=== PATIENT | female | born 1980 | race African-American/Black ===

== ENCOUNTER 2017-06-02 10:03 | Inpatient (IN) ==
[2017-06-02] MEDS ORDERED: Ondansetron 4 MG/2 ML VIAL IVP ONE (10:27)
[2017-06-02] MEDS ORDERED: 0.9 % Sodium Chloride 1,000 ML IVC ONE (10:27)
--- NOTE | 2017-06-02 10:34 | Emergency Department Note ---
Disposition Clinical Impression: Pancreatitis, acute Qualifiers: Pancreatitis type: other Acute pancreatitis complication: unspecified Qualified Code(s): K85.80 - Other acute pancreatitis without necrosis or infection Disposition: Admitted As Inpatient Condition: Good Abdominal Pain HPI - General Chief Complaint: ED Abdominal Pain Stated Complaint: abd pain Time Seen by Provider: 06/02/17 10:14 Source: patient Nursing Notes Reviewed: Yes Vital Signs Reviewed: Yes - History of Present Illness HPI Narrative: Presents with epigastric abdominal pain for the last 2 days which is constant and severe with radiation to the back and she is not able to describe the character. She was here last night and diagnosed with pancreatitis with elevated lipase level and I did review this result. She left after it was decided that she should be admitted I one concern is because she is at a home for heroin addicts and she was concerned she would be kicked out if she received narcotic medication here. She states that 2 days ago she checked her temperature with a forehead thermometer which was 102.4 has not had a fever since that time although she has not specifically checked her temperature since that time. She denies any dysuria or urinary frequency, blood in the urine or stool, vaginal bleeding or discharge. She did vomit one time today. No diarrhea. Social history: Smokes one or 2 cigarettes a day, no alcohol, has not used heroin in the last 7 months. Pain Scale: 10 - Related Data Home Medications Medication Instructions Recorded Confirmed Ibuprofen [Motrin] 800 mg PO Q6HR 12/02/16 06/02/17 Insulin ASPART [Novolog] 5 - 8 unit SQ 2-3XD 12/02/16 06/02/17 Insulin Glargine [Lantus] 40 unit SQ HS 12/02/16 06/02/17 Aspirin [Lo-Dose Aspirin EC] 81 mg PO DAILY 06/02/17 06/02/17 Citalopram Hydrobromide 40 mg PO DAILY 06/02/17 06/02/17 [Citalopram HBr] Liraglutide [Victoza 3-Tyson] 1.2 mg SQ DAILY 06/02/17 06/02/17 Lisinopril [Lisinopril] 2.5 mg PO DAILY 06/02/17 06/02/17 Metoprolol Tartrate [Lopressor] 50 mg PO DAILY 06/02/17 06/02/17 Multivitamin/Iron/Folic Acid 1 each PO DAILY 06/02/17 06/02/17 [Certavite-Antioxidant Tablet] cephALEXin [Keflex] 500 mg PO BID 06/02/17 06/02/17 traZODone [TraZODone] 50 mg PO HS 06/02/17 06/02/17 Previous Rx's Medication Instructions Recorded Ondansetron [Zofran ODT] 4 mg SL Q6HR PRN #5 tab.rapdis 02/03/17 Allergies Allergy/AdvReac Type Severity Reaction Status Date / Time acetaminophen [From Tylenol] AdvReac Nausea Verified 06/02/17 10:07 vancomycin AdvReac See Verified 06/02/17 13:57 Comments Review of Systems: Constitutional: No fever Vision: No blurred vision ENT: No rhinorrhea Respiratory: No cough Allergic: No allergies : No blood in urine GI: No blood in stool Hematologic: No bruising Dermatologic: No skin rash Musculoskeletal: No pain in the extremities Neuro: No numbness of the extremities Abdominal Pain PMH - Past Medical History Medical history: Reports: coronary artery disease, diabetes, hepatitis, hyperlipidemia, hypertension, 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 EYES: PERRL, no scleral icterus. NOSE: The nose is normal in appearance without rhinorrhea RESP: Normal chest excursion with respiration; breath sounds clear and equal bilaterally; no wheezes, rhonchi, or rales CARD: Regular rhythm, without murmurs, rub or gallop ABD: Non-distended; normal appearance, moderate pain on palpation epigastric and minimal generalized pain but the entire abdomen is soft,without rigidity, rebound or guarding SKIN: Normal for age and race; warm and dry; no apparent lesions - General Limitations: no limitations General appearance: alert, in no apparent distress Course Vital Signs Temperature 97.9 F 06/02/17 10:05 Pulse Rate 80 06/02/17 10:05 Respiratory Rate 16 06/02/17 10:05 Blood Pressure 142/93 06/02/17 10:05 O2 Sat by Pulse Oximetry 97 06/02/17 10:05 Temperature 98.6 F 06/02/17 19:35 Pulse Rate 77 06/02/17 19:35 Respiratory Rate 16 06/02/17 19:35 Blood Pressure 116/75 06/02/17 19:35 O2 Sat by Pulse Oximetry 96 06/02/17 19:35 Oxygen Delivery Oxygen Delivery Room Air Abdominal Pain - MDM Narrative Medical decision making narrative: Labs will be repeated, IV fluids, IV Zofran. Patient will be admitted with the diagnosis of acute pancreatitis. She did have a cholecystectomy in the past. [id number] I have gone back and reassessed the patient. She distal does have significant pain although it is improved. Lipase is still elevated over 3 times upper normal and the patient will be admitted for further evaluation of pancreatitis. Her calcium level was not elevated. She has had a cholecystectomy. She does not drink alcohol. I did add on a triglyceride level and this can be further assessed while she is here in the hospital as far as etiology of pancreatitis. [id number] - Medical Records Medical records reviewed: Yes I reviewed the patient's medical records. - Lab Data Lab results reviewed: Yes I reviewed the patient's lab results. Result diagrams: 06/02/17 10:44 06/02/17 10:44 Lab Results 06/02/17 06/02/17 06/02/17 Range/Units 10:44 10:44 13:05 WBC 11.1 (4.3-11.1) K/mcL RBC 4.85 (3.82-4.97) M/mcL Hgb 13.5 (11.5-15.4) g/dL Hct 41.0 (35.3-44.9) % MCV 84.5 (83.0-100.0) fL MCH 27.8 L (28.0-33.3) pg MCHC 32.9 (31.6-35.5) g/dL RDW 11.5 (11.5-14.5) % Plt Count 184 (140-400) K/mcL MPV 9.6 (9.4-12.4) fL Immature Gran % 0.6 (0-4) % Seg Neutrophils % 76.1 % Lymphocytes % 15.5 % Monocytes % 4.7 % Eosinophils % 2.6 % Basophils % 0.5 % Neutrophils # 8.4 (1.6-8.9) K/mcL Lymphocytes # 1.7 (0.6-4.6) K/mcL Monocytes # 0.5 (0.0-1.3) K/mcL Eosinophils # 0.3 (0.0-0.6) K/mcL Basophils # 0.1 (0.0-0.2) K/mcL Sodium 134 L (136-145) mEq/L Potassium 4.1 (3.5-4.5) mEq/L Chloride 104 (98-109) mEq/L Carbon Dioxide 25 (19-29) mEq/L BUN 10 (7-20) mg/dL Creatinine 0.81 (0.57-1.11) mg/dL Est GFR ( Amer) > 60 (> 60) Est GFR (Non-Af Amer) > 60 (> 60) BUN/Creatinine Ratio 12 (6-26) Glucose 330 H (70-99) mg/dL Calculated Osmolality 290 (280-300) Calcium 8.5 L (8.6-10.8) mg/dL Total Bilirubin 0.8 (0.2-1.2) mg/dL Direct Bilirubin 0.4 (0.0-0.5) mg/dL Indirect Bilirubin 0.4 (0.0-1.2) mg/dL AST 24 (5-34) Units/L ALT 31 (0-55) Units/L Alkaline Phosphatase 78 (38-126) Units/L Serum Total Protein 6.9 (6.0-8.3) g/dL Albumin 3.0 L (3.5-5.0) g/dL Globulin 3.9 H (2.4-3.5) g/dL Albumin/Globulin Ratio 0.8 L (1.1-2.2) Triglycerides 134 (< 150) mg/dL Lipase 213 H (8-78) Units/L Urine Color Yellow (Yellow) Urine Clarity Cloudy A (Clear) Urine pH 6.0 (5.0-8.0) pH Units Ur Specific [place] 1.018 (1.010-1.025) Urine Protein Negative (Neg-Trace) mg/dL Urine Glucose (UA) >=1000 H (Normal) mg/dL Urine Ketones Negative (Negative) mg/dL Urine Blood Negative (Negative) Urine Nitrite Negative (Negative) Urine Bilirubin Negative (Negative) Urine Urobilinogen Normal (Normal) mg/dL Ur Leukocyte Esterase Negative (Negative) Urine Microscopic RBC 0-3 (0-3) per hpf Urine Microscopic WBC 5-15 H (0-3) per hpf Ur Squamous Epith Cells Many H (None-Few) per lpf Urine Bacteria Moderate H (None-Few) per hpf Hyaline Casts None Seen (None-Few) per lpf Ur Culture Indicated? YES A (NO) Urine Test (Negative) 06/02/17 Range/Units 13:05 WBC (4.3-11.1) K/mcL RBC (3.82-4.97) M/mcL Hgb (11.5-15.4) g/dL Hct (35.3-44.9) % MCV (83.0-100.0) fL MCH (28.0-33.3) pg MCHC (31.6-35.5) g/dL RDW (11.5-14.5) % Plt Count (140-400) K/mcL MPV (9.4-12.4) fL Immature Gran % (0-4) % Seg Neutrophils % % Lymphocytes % % Monocytes % % Eosinophils % % Basophils % % Neutrophils # (1.6-8.9) K/mcL Lymphocytes # (0.6-4.6) K/mcL Monocytes # (0.0-1.3) K/mcL Eosinophils # (0.0-0.6) K/mcL Basophils # (0.0-0.2) K/mcL Sodium (136-145) mEq/L Potassium (3.5-4.5) mEq/L Chloride (98-109) mEq/L Carbon Dioxide (19-29) mEq/L BUN (7-20) mg/dL Creatinine (0.57-1.11) mg/dL Est GFR ( Amer) (> 60) Est GFR (Non-Af Amer) (> 60) BUN/Creatinine Ratio (6-26) Glucose (70-99) mg/dL Calculated Osmolality (280-300) Calcium (8.6-10.8) mg/dL Total Bilirubin (0.2-1.2) mg/dL Direct Bilirubin (0.0-0.5) mg/dL Indirect Bilirubin (0.0-1.2) mg/dL AST (5-34) Units/L ALT (0-55) Units/L Alkaline Phosphatase (38-126) Units/L Serum Total Protein (6.0-8.3) g/dL Albumin (3.5-5.0) g/dL Globulin (2.4-3.5) g/dL Albumin/Globulin Ratio (1.1-2.2) Triglycerides (< 150) mg/dL Lipase (8-78) Units/L Urine Color (Yellow) Urine Clarity (Clear) Urine pH (5.0-8.0) pH Units Ur Specific [place] (1.010-1.025) Urine Protein (Neg-Trace) mg/dL Urine Glucose (UA) (Normal) mg/dL Urine Ketones (Negative) mg/dL Urine Blood (Negative) Urine Nitrite (Negative) Urine Bilirubin (Negative) Urine Urobilinogen (Normal) mg/dL Ur Leukocyte Esterase (Negative) Urine Microscopic RBC (0-3) per hpf Urine Microscopic WBC (0-3) per hpf Ur Squamous Epith Cells (None-Few) per lpf Urine Bacteria (None-Few) per hpf Hyaline Casts (None-Few) per lpf Ur Culture Indicated? (NO) Urine Test Negative (Negative)
[2017-06-02 10:57] LABS: Basophils # 0.1 K/mcL (0.0-0.2); Basophils % 0.5 %; Eosinophils # 0.3 K/mcL (0.0-0.6); Eosinophils % 2.6 %; Hemoglobin 13.5 g/dL (11.5-15.4); Immature Granulocytes % 0.6 % (0-4); Lymphocytes # 1.7 K/mcL (0.6-4.6); Lymphocytes % 15.5 %; Mean Corpuscular HGB Conc 32.9 g/dL (31.6-35.5); Mean Corpuscular Hemoglobin 27.8 pg (28.0-33.3); Mean Corpuscular Volume 84.5 fL (83.0-100.0); Mean Platelet Volume 9.6 fL (9.4-12.4); Monocytes # 0.5 K/mcL (0.0-1.3); Monocytes % 4.7 %; Neutrophils # 8.4 K/mcL (1.6-8.9); Platelet Count 184 K/mcL (140-400); Red Blood Count 4.85 M/mcL (3.82-4.97); Red Cell Distribution Width 11.5 % (11.5-14.5); Segmented Neutrophils % 76.1 %
[2017-06-02] MEDS ORDERED: *HR* HYDROmorphone (PF) 1 MG/ML SYRINGE ONE (11:02)
[2017-06-02] MEDS: *HR* HYDROmorphone (PF) 1 MG/ML SYRINGE IVP ONE ×2 (11:04→11:08)
[2017-06-02 11:10] LABS: Alanine Aminotransferase 31 Units/L (0-55); Albumin/Globulin Ratio 0.8 (1.1-2.2); Alkaline Phosphatase 78 Units/L (38-126); Aspartate Amino Transferase 24 Units/L (5-34); BUN/Creatinine Ratio 12 (6-26); Bilirubin,Direct 0.4 mg/dL (0.0-0.5); Bilirubin,Indirect 0.4 mg/dL (0.0-1.2); Bilirubin,Total 0.8 mg/dL (0.2-1.2); Blood Urea Nitrogen 10 mg/dL (7-20); Calcium 8.5 mg/dL (8.6-10.8); Carbon Dioxide 25 mEq/L (19-29); Chloride 104 mEq/L (98-109); Globulin 3.9 g/dL (2.4-3.5); Glucose 330 mg/dL (70-99); Lipase 213 Units/L (8-78); Osmolality,Calculated 290 (280-300); Potassium 4.1 mEq/L (3.5-4.5); Sodium 134 mEq/L (136-145); Total Protein 6.9 g/dL (6.0-8.3); eGFR For African Americans > 60 (> 60); eGFR For Non-African Americans > 60 (> 60)
[2017-06-02] MEDS ORDERED: Ketorolac 15 MG/ML VIAL IVP ONE (12:39)
[2017-06-02 13:16] LABS: Bilirubin,Urine Negative (Negative); Blood,Urine Negative (Negative); Clarity,Urine Cloudy (Clear); Color,Urine Yellow (Yellow); Glucose,Urine (UA) >=1000 mg/dL (Normal); Ketones,Urine Negative (Negative); Leukocyte Esterase,Urine Negative (Negative); Nitrite,Urine Negative (Negative); Protein,Urine Negative (Neg-Trace); Specific Gravity,Urine 1.018 (1.010-1.025); Urobilinogen,Urine Normal (Normal)
[2017-06-02 13:18] LABS: Bacteria,Urine Moderate per hpf (None-Few); Hyaline Casts,Urine None Seen per lpf (None-Few); RBC,Urine 0-3 per hpf (0-3); Squamous Epithelial Cell,Urine Many per lpf (None-Few)
[2017-06-02] MEDS ORDERED: Naloxone 0.4 MG/ML INJ IVP PRN (14:58)
[2017-06-02] MEDS ORDERED: 0.9 % Sodium Chloride 1,000 ML IVC SCH (15:15)
[2017-06-02] MEDS ORDERED: D5% in Water 1,000 ML IVC PRN (15:20)
[2017-06-02] MEDS ORDERED: Dextrose Gel 15 GM PO PRN ×2 (15:20)
[2017-06-02] MEDS ORDERED: *HR* Dextrose 50 % in Water (Syg) 50 ML SYRINGE IVP PRN (15:20)
[2017-06-02] MEDS ORDERED: INSULIN ASPART 5 UNIT SQ SCH (15:30)
[2017-06-02 15:39] LABS: Triglycerides 134 mg/dL (< 150)
--- NOTE | 2017-06-02 15:42 | Internal Med History&Physical ---
<Hemanth Wang - Last Filed: 06/02/17 20:38> Date of Encounter: 06/02/17 Time of Encounter: 14:30 Assessment and Plan (1) Pancreatitis Current visit: Yes Status: Acute Patient presents with acute pancreatitis based on current symptoms and previous history. Patient reports severe abdominal pain that radiates to her back. Lipase is 213 on admission to ED. Patient received IV fluid bolus in the ED and IV fluid to be continued at 100 mL/HR. NPO status for now. IVP Promethazine 12.5 mg ordered Q6 PRN for nausea/vomiting. IVP Protonix 40 mg ordered daily for patient's GERD. Will monitor patient's I&O and pain level. Follow up labs ordered. STAT test ordered. Once non- status is confirmed, will order CT of the abdomen/pelvis w/o contrast. Qualifiers: Chronicity: acute Pancreatitis type: unspecified pancreatitis type Acute pancreatitis complication: unspecified Qualified Code(s): K85.90 - Acute pancreatitis without necrosis or infection, unspecified (2) Suspected UTI Current visit: Yes Status: Suspected Patient presents with suspected UTI based on U/A in the ED. Urine culture ordered. Patient denies any current burning or urgency with urination. IV ciprofloxacin 400 mg BID ordered for infection coverage. Will monitor I&O and follow-up labs. (3) Abdominal pain Current visit: Yes Status: Acute Patient presents with acute abdominal pain for the past three days which she rates as severe. Patient was given Toradol and Dilaudid in the ED which she states did not help much with her pain. Will continue Toradol for moderate pain and add morphine for severe pain. Will monitor patient closely for breakthrough pain. NPO status. Patient placed as falls precautions/up with assist/bed rest with bathroom privileges with assist only due to current severe pain. Qualifiers: Abdominal location: generalized Qualified Code(s): R10.84 - Generalized abdominal pain (4) Diabetes Current visit: Yes Status: Chronic Patient presents with history of chronic diabetes with insulin dependency. A1c ordered. Blood glucose checks ACHS. Will continue patient's HS insulin and add low-dose correction insulin sliding scale with hypoglycemic protocol. Patient is currently NPO so blood glucose to be monitored closely and corrected as needed. Qualifiers: Diabetes mellitus type: type 2 Diabetes mellitus complication status: without complication Diabetes mellitus long term care phlebotomist insulin use: with group home use Qualified Code(s): E11.9 - Type 2 diabetes mellitus without complications ; Z79.4 - long term care phlebotomist (current) use of insulin (5) CAD (coronary artery disease) Current visit: Yes Status: Chronic Patient presents with history of chronic CAD and reports having 4-5 previous MIs with placement of one stent in the LAD due to 99% blockage. Patient denies chest pain or SOB at this time or recently. Will continue patient's aspirin therapy daily as well as lopressor and lisinopril. Echocardiogram and EKG ordered. Will consider adding continuous telemetry if warranted on echo and EKG results. Qualifiers: Coronary Disease-Associated Artery/Lesion type: unspecified vessel or lesion type [place] vs. transplanted heart: [place] heart Associated angina: without angina Qualified Code(s): I25.10 - Atherosclerotic heart disease of [place] coronary artery without angina pectoris (6) HLD (hyperlipidemia) Current visit: Yes Status: Chronic Patient reports history of chronic hyperlipidemia but is not currently taking a statin medication. Lipid panel ordered. Will consider adding Lipitor to patient' s medications based on lipid panel results. Qualifiers: Hyperlipidemia type: pure hypercholesterolemia Qualified Code(s): E78.00 - Pure hypercholesterolemia, unspecified; E78.0 - Pure hypercholesterolemia (7) HTN (hypertension) Current visit: Yes Status: Chronic Patient presents with history of chronic hypertension. Patient's BP in ED was 171/116 most likely due to current severe abdominal pain. Will monitor patient and vital signs and continue patient' s lopressor and lisinopril. Qualifiers: Hypertension type: essential hypertension Qualified Code(s): I10 - Essential (primary) hypertension (8) GERD (gastroesophageal reflux disease) Current visit: Yes Status: Chronic Patient presents with history of chronic GERD. IVP Protonix 40 mg daily ordered. IVP Promethazine 12.5 mg Q6 PRN ordered for N/V. Qualifiers: Esophagitis presence: esophagitis presence not specified Qualified Code(s) : K21.9 - Gastro-esophageal reflux disease without esophagitis (9) DVT prophylaxis Current visit: Yes Status: Acute Patient to be placed on DVT prophylaxis due to current admission protocol, bed rest status, and history of CAD, Heparin 5,000 units SQ Q12 ordered. Internal Medicine - H&P: HPI Chief complaint: Abdominal Pain/N/V Admitted From: Emergency Dept Plans for Post Hospital Care: Home History of present illness: Ms. Fortune is a 36 year old female who presents from the Ed with chief complaint of severe abdominal pain that began three days ago and that has been accompanied by nausea and vomiting. Patient states that the pain radiates to her back and is similar to the pain she had prior to having a cholecystectomy in 2014 but the pain is more severe. She was seen in the ED yesterday with the same symptoms but did not stay due to being in rehab and not wanting to take pain medication without prior approval from her facility/counselor. She also reports fever and chills. She denies chest pain, unusual bleeding in stool or urine, general weakness, changes in vision, shortness of breath, pre-syncope, or syncope. Patient's medical history includes coronary artery disease, diabetes with insulin dependency, hepatitis C, hyperlipidemia, hypertension, and history of 4-5 previous MIs. Patient reports she had a stent placed in her descending artery due to a 99% blockage. Patient also reports she is post- cholecystectomy status. She reports using heroin and crack cocaine in the past and quit seven months ago prior to entering rehabilitation services. She is a current smoker smoking 1-2 cigarettes daily. Ms. Fortune currently presents with hyponatremia and sodium level of 134, hyperglycemia with glucose of 330, and a lipase level of 213 on admission to the ED. Initial U/A is indicative for urine culture for possible UTI. Stat test ordered prior to ordering CT of the abdomen/pelvis. Patient is at moderate risk for further morbidity and complications based on current symptoms and will be placed as observation status with orders for IV fluids @ 100mL/HR, NPO status, stair-step pain medications for pain management, and IV ciprofloxacin 400 mg BID for infection coverage. Falls/safety precautions ordered due to patient's severe pain. Patient to be monitored closely for signs of increasing pain and/or infection. Time spent with patient >40 minutes. Past Med Surg Social Fam HX - Past Medical History Source: patient Medical history: coronary artery disease (Hx of 4-5 MIs and stent placed in descending artery due to 99% blockage), diabetes, hepatitis (C), hyperlipidemia , hypertension, other Psychiatric history: PTSD - Past Surgical History Surgical History: cholecystectomy - Social History Smoking Status: Current every day smoker Packs per day: 1-2 cigarettes per day Smokeless Tobacco Status: No Alcohol use: none Drug use: none Current living situation: Home Activity Level: Independent ambulation Recent Out of Country Travel Within the Last 8 Weeks: No Exposure or Possible Exposure to Illness During Travel: No - Family History Father Living Status: Still Living Hx Family Medical Disorders: No Mother Living Status: Still Living Hx Family Endocrine Disorder: Yes (DM) Brother Living Status: Still Living Hx Family Medical Disorders: No Internal Medicine - H&P: Meds Ibuprofen [Motrin] 800 mg PO Q6HR 12/02/16 [History] Insulin ASPART [Novolog] 5 - 8 unit SQ 2-3XD 12/02/16 [History] Insulin Glargine [Lantus] 40 unit SQ HS 12/02/16 [History] Ondansetron [Zofran ODT] 4 mg SL Q6HR PRN #5 tab.rapdis 02/03/17 [Rx] Aspirin [Lo-Dose Aspirin EC] 81 mg PO DAILY 06/02/17 [History] Citalopram Hydrobromide [Citalopram HBr] 40 mg PO DAILY 06/02/17 [History] Liraglutide [Victoza 3-Tyson] 1.2 mg SQ DAILY 06/02/17 [History] Lisinopril [Lisinopril] 2.5 mg PO DAILY 06/02/17 [History] Metoprolol Tartrate [Lopressor] 50 mg PO DAILY 06/02/17 [History] Multivitamin/Iron/Folic Acid [Certavite-Antioxidant Tablet] 1 each PO DAILY [History] cephALEXin [Keflex] 500 mg PO BID 06/02/17 [History] traZODone [TraZODone] 50 mg PO HS 06/02/17 [History] 3 Allergy/AdvReac Type Severity Reaction Status Date / Time acetaminophen [From Tylenol] AdvReac Nausea Verified 06/02/17 10:07 vancomycin AdvReac See Verified 06/02/17 13:57 Comments All Systems PM: A 10-system review of systems was performed and is negative for pertinent findings except as documented above in the HPI. - Constitutional Constitutional: as per HPI, chills, fever(s), no night sweats - EENT Eyes: no change in vision, no discharge, no pain, no photophobia Ears: no ear discharge, no ear pain, no tinnitus Nose, mouth and throat: no dysphagia, no nasal discharge, no neck pain, no sore throat - Breasts Breasts: as per HPI - Cardiovascular Cardiovascular ROS IM: no chest pain, no diaphoresis, no dyspnea, no lightheadedness, no palpitations, no syncope - Respiratory Respiratory: no cough, no dyspnea, no wheezing, no excessive phlegm production - Gastrointestinal Gastrointestinal: as per HPI, abdominal pain, nausea, vomiting - Genitourinary Genitourinary: as per HPI Menstruation: as per HPI - Musculoskeletal Musculoskeletal ROS IM: no numbness, no tingling - Integumentary Integumentary IM: no rash, no unusual bruising - Neurological Neurological ROS: no confusion, no convulsions, no focal weakness, no numbness, no tingling, no tremor(s) - Psychiatric Psychiatric: as per HPI - Endocrine Endocrine IM: as per HPI - Hematologic/Lymphatic Hematologic/Lymphatic: no easy bruising - Allergic/Immunologic Allergic/Immunologic: as per HPI - Constitutional Vitals: Temp Pulse Resp BP Pulse Ox 97.9 F 69 16 135/83 96 06/02/17 10:05 06/02/17 12:37 06/02/17 14:57 06/02/17 14:57 06/02/17 12:37 General appearance: Present: cooperative, morbidly obese, pleasant, severe distress, answers questions appropriately - Head Head exam: Present: atraumatic, normocephalic - Eye Eye exam: Present: PERRL, conjuntiva pink, sclera anicteric Pupils: Present: PERRL - ENT ENT exam: Present: normal exam, normal external ear exam - Neck Neck exam general surgery: Present: normal inspection, supple, trachea midline. Absent: lymphadenopathy - Respiratory Respiratory exam: Present: CTAB. Absent: accessory muscle use, rales, rhonchi, wheezes - Cardiovascular Cardiovascular exam: Present: RRR, +S1, +S2. Absent: diastolic murmur, gallop, rubs, systolic murmur - GI/Abdominal GI/Abdominal exam: Present: diminished bowel sounds, guarding, soft, tenderness , no peritoneal signs. Absent: distended - Rectal Rectal exam: Present: deferred - Additional comments: exam deferred. - Extremities Exam Extremities exam: Present: warm, radial pulses palpable and symmetrical. Absent : calf tenderness, cyanotic, pedal edema - Back Exam Back exam: Present: normal inspection - Neurological Exam Neurological exam: Present: CN II-XII intact, oriented X3, no focal deficits. Absent: pronater drift, facial droop, speech deficit - Psychiatric Psychiatric exam: Present: anxious (Due to severe pain) - Skin Skin exam: Present: dry, intact Internal Med - H&P Results - Labs CBC & Chem 7: 06/02/17 10:44 06/02/17 10:44 <Leslie Ortega - Last Filed: 06/03/17 07:10> Date of Encounter: 06/03/17 Internal Medicine - H&P: HPI History of present illness: Ms. Fortune is a 36 year old female All Systems PM: A 10-system review of systems was performed and is negative for pertinent findings except as documented above in the HPI. - Constitutional Vitals: Temp Pulse Resp BP Pulse Ox 98.6 F 75 16 113/77 90 06/03/17 06:31 06/03/17 06:31 06/03/17 06:31 06/03/17 06:31 06/03/17 06:31 Internal Med - H&P Results - Labs CBC & Chem 7: 06/03/17 05:38 06/03/17 05:38 Labs: Short CBC 06/03/17 Range/Units 05:38 WBC 9.8 (4.3-11.1) K/mcL Hgb 13.1 (11.5-15.4) g/dL Hct 39.8 (35.3-44.9) % Plt Count 182 (140-400) K/mcL Neutrophils # 7.2 (1.6-8.9) K/mcL BMP 06/03/17 05:38 Sodium 138 Potassium 3.8 Chloride 109 Carbon Dioxide 23 BUN 10 Creatinine 0.71 Glucose 157 H Calcium 8.1 L - Impressions ITS Impressions Abdomen/Pelvis CT 06/02/17 16:27 IMPRESSION: 1. Findings consistent with pancreatitis involving the head and uncinate process of the pancreas. Secondary duodenitis with inflammatory changes particularly along the 2nd portion of the duodenum. 2. Otherwise no acute findings within the abdomen or pelvis. Previous cholecystectomy. No evidence of obstructive uropathy or appendicitis. D/ / 06/02/2017 18:29:51 Costa Roa MD / artie Interpreting Provider: Costa Roa MD
[2017-06-02] MEDS ORDERED: Insulin LISPRO 300 UNITS/3 ML VIAL SQ SCH ×2 (16:30→21:00)
[2017-06-02] MEDS: Pantoprazole 40 MG VIAL IVP SCH (16:41)
[2017-06-02] MEDS: *HR* Heparin 5,000 UNIT/ML VIAL SQ SCH (16:41)
[2017-06-02] MEDS: *HR* Morphine 2 MG/ML SYRINGE IVP PRN ×2 (16:41→20:48)
[2017-06-02] MEDS: Ketorolac 30 MG/ML VIAL IVP PRN ×2 (17:36→23:43)
--- NOTE | 2017-06-02 18:34 | Event Note ---
Date of Encounter: 06/02/17 Time of Encounter: 18:00 I saw and examined pt. I have discussed with [employer]WD[employer] MACHINE OPERATOR Mr. Wang regarding the management plan. Pt admitted with Abd pain. She has elevated lipase. CT abd shows acute pancreatitis. Pt has hx of pancreatitis in 2014, at that time she had cholecystectomy. Pt denies alcoholism. She has normal bilirubin and liver enzyme level. Will treat pt with IVF, NPO, and pain med for her acute pancreatitis. F/U lipase in AM.
[2017-06-02] MEDS: Insulin LISPRO 300 UNITS/3 ML VIAL SQ SCH ×2 (18:39→23:54)
[2017-06-02] MEDS: 0.9 % Sodium Chloride 1,000 ML IVC SCH (18:40)
[2017-06-02] MEDS: Insulin DETEMIR 100 UNIT/ML X5UNITS SQ SCH (19:53)
[2017-06-03] MEDS: 0.9 % Sodium Chloride 1,000 ML IVC SCH ×3 (00:55→18:22)
[2017-06-03] MEDS ORDERED: *HR* HYDROmorphone (PF) 1 MG/ML SYRINGE IVP ONE (01:06)
[2017-06-03] MEDS: *HR* Morphine 2 MG/ML SYRINGE IVP PRN ×4 (03:44→18:24)
[2017-06-03] MEDS: Insulin LISPRO 300 UNITS/3 ML VIAL SQ SCH ×3 (05:46→18:36)
[2017-06-03] MEDS: *HR* Heparin 5,000 UNIT/ML VIAL SQ SCH ×2 (05:47→18:42)
[2017-06-03] MEDS: Ketorolac 30 MG/ML VIAL IVP PRN (05:48)
[2017-06-03 06:17] LABS: INR 1.2; Prothrombin Time 12.6 Seconds (9.4-12.1)
[2017-06-03 06:20] LABS: Activated Partial Thrombo Time 33.3 Seconds (26.0-36.0)
[2017-06-03 06:21] LABS: Basophils % 0.4 %; Eosinophils # 0.3 K/mcL (0.0-0.6); Eosinophils % 2.8 %; Hematocrit 39.8 % (35.3-44.9); Hemoglobin 13.1 g/dL (11.5-15.4); Immature Granulocytes % 0.7 % (0-4); Lymphocytes # 1.7 K/mcL (0.6-4.6); Lymphocytes % 17.3 %; Mean Corpuscular HGB Conc 32.9 g/dL (31.6-35.5); Mean Corpuscular Hemoglobin 28.4 pg (28.0-33.3); Mean Corpuscular Volume 86.3 fL (83.0-100.0); Mean Platelet Volume 9.8 fL (9.4-12.4); Monocytes # 0.5 K/mcL (0.0-1.3); Monocytes % 5.2 %; Neutrophils # 7.2 K/mcL (1.6-8.9); Platelet Count 182 K/mcL (140-400); Red Blood Count 4.61 M/mcL (3.82-4.97); Red Cell Distribution Width 11.8 % (11.5-14.5); Segmented Neutrophils % 73.6 %
[2017-06-03 06:34] LABS: BUN/Creatinine Ratio 14 (6-26); Blood Urea Nitrogen 10 mg/dL (7-20); Calcium 8.1 mg/dL (8.6-10.8); Carbon Dioxide 23 mEq/L (19-29); Chloride 109 mEq/L (98-109); Chol/HDL Ratio 5.4 (0-4.9); Cholesterol 188 mg/dL (< 200); Glucose 157 mg/dL (70-99); HDL Cholesterol 35 mg/dL (40-59); LDL Cholesterol,Calculated 128 mg/dL (0-99); Magnesium 1.4 mg/dL (1.6-2.6); Osmolality,Calculated 288 (280-300); Potassium 3.8 mEq/L (3.5-4.5); Sodium 138 mEq/L (136-145); Triglycerides 123 mg/dL (< 150); eGFR For African Americans > 60 (> 60); eGFR For Non-African Americans > 60 (> 60)
[2017-06-03] MEDS: Pantoprazole 40 MG VIAL IVP SCH (08:01)
[2017-06-03] MEDS: Aspirin Enteric Coated 81 MG Tablet PO SCH (08:02)
[2017-06-03] MEDS ORDERED: Magnesium Sulfate 2 GM in D5% in Water 100 ML IVPB ONE (08:17)
--- NOTE | 2017-06-03 11:32 | Internal Med Progress Note ---
Date of Encounter: 06/03/17 Time of Encounter: 11:27 - Assessment and plan (1) Pancreatitis, acute Current Visit: Yes Status: Acute Assessment and plan: continue supportive care IV fluids pain control anti-emetics clear liquid diet Qualifiers: Pancreatitis type: unspecified pancreatitis type Acute pancreatitis complication: unspecified Qualified Code(s): K85.90 - Acute pancreatitis without necrosis or infection, unspecified (2) UTI (urinary tract infection) Current Visit: Yes Status: Acute Assessment and plan: continue IV abx f/u urine cultures Qualifiers: Urinary tract infection type: site unspecified Hematuria presence: without hematuria Qualified Code(s): N39.0 - Urinary tract infection, site not specified (3) DVT prophylaxis Current Visit: Yes Status: Acute Assessment and plan: Heparin SQ (4) Diabetes Current Visit: Yes Status: Chronic Assessment and plan: continue sliding scale insulin algorithm home dose of levemir monitor FS and BG Qualifiers: Diabetes mellitus type: type 2 Diabetes mellitus complication status: without complication Diabetes mellitus penitentiary insulin use: with penitentiary use Qualified Code(s): E11.9 - Type 2 diabetes mellitus without complications ; 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 transplanted heart: [place] heart Associated angina: without angina Qualified Code(s): I25.10 - Atherosclerotic heart disease of [place] coronary artery without angina pectoris (6) HTN (hypertension) Current Visit: Yes Status: Chronic Assessment and plan: BP within acceptable range will continue to monitor Qualifiers: Hypertension type: essential hypertension Qualified Code(s): I10 - Essential (primary) hypertension - Subjective Interval history: Pt seen and examined at bedside. Reports of feeling better but still have diffuse abdominal pain. Denies any nausea or vomiting at this time. States she would like to have some water but does not feel hungry at this time. No fever or chills reported. - Constitutional Vitals: Temp Pulse Resp BP Pulse Ox 98.1 F 66 16 119/81 94 06/03/17 10:53 06/03/17 10:53 06/03/17 10:53 06/03/17 10:53 06/03/17 10:53 General appearance: Present: cooperative, morbidly obese, pleasant, no acute distress, severe distress, answers questions appropriately - Head Head exam: Present: atraumatic, normocephalic - Eye Eye exam: Present: conjuntiva pink, sclera anicteric - Respiratory Respiratory exam: Present: CTAB. Absent: accessory muscle use, rales, rhonchi, wheezes - Cardiovascular Cardiovascular exam: Present: RRR, +S1, +S2. Absent: diastolic murmur, gallop, rubs, systolic murmur - GI/Abdominal GI/Abdominal exam: Present: normal bowel sounds, soft, no peritoneal signs. Absent: distended, tenderness - Extremities Exam Extremities exam: Present: warm, radial pulses palpable and symmetrical. Absent : calf tenderness - Neurological Exam Neurological exam: Present: alert, oriented X3 - Psychiatric Psychiatric exam: Present: normal affect, normal mood Internal Medicine: Result - Labs CBC & Chem 7: 06/03/17 05:38 06/03/17 05:38 Labs: Short CBC 06/03/17 Range/Units 05:38 WBC 9.8 (4.3-11.1) K/mcL Hgb 13.1 (11.5-15.4) g/dL Hct 39.8 (35.3-44.9) % Plt Count 182 (140-400) K/mcL Neutrophils # 7.2 (1.6-8.9) K/mcL BMP 06/03/17 05:38 Sodium 138 Potassium 3.8 Chloride 109 Carbon Dioxide 23 BUN 10 Creatinine 0.71 Glucose 157 H Calcium 8.1 L - ABG Interpretation ABG results: PT/INR, D-dimer PT 12.6 Seconds (9.4-12.1) H 06/03/17 05:38 - Impressions Impressions Abdomen/Pelvis CT 06/02/17 16:27 IMPRESSION: 1. Findings consistent with pancreatitis involving the head and uncinate process of the pancreas. Secondary duodenitis with inflammatory changes particularly along the 2nd portion of the duodenum. 2. Otherwise no acute findings within the abdomen or pelvis. Previous cholecystectomy. No evidence of obstructive uropathy or appendicitis. D/ / 06/02/2017 18:29:51 Costa Roa MD / artie Interpreting Provider: Costa Roa MD Consult Discharge Plan - Plan Referrals: Lelo Quick CNP [Primary Care Provider] - 06/14/17 1:45 pm ( )
[2017-06-03] MEDS: *HR* Promethazine 25 MG/ML VIAL IVP PRN ×2 (12:33→18:30)
--- NOTE | 2017-06-03 17:13 | Electrocardiograph Report ---
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
[2017-06-03] MEDS: traZODone 50 MG TABLET PO SCH (20:34)
[2017-06-03] MEDS: Insulin DETEMIR 100 UNIT/ML X5UNITS SQ SCH (20:36)
[2017-06-04] MEDS: *HR* Morphine 2 MG/ML SYRINGE IVP PRN ×5 (00:25→20:41)
[2017-06-04] MEDS: Insulin LISPRO 300 UNITS/3 ML VIAL SQ SCH ×4 (00:27→18:24)
[2017-06-04] MEDS: *HR* OxyCODONE Immed Rel 5 MG TABLET PO PRN ×3 (01:25→18:28)
[2017-06-04] MEDS: 0.9 % Sodium Chloride 1,000 ML IVC SCH ×4 (02:05→20:36)
[2017-06-04] MEDS: *HR* Heparin 5,000 UNIT/ML VIAL SQ SCH ×2 (05:04→18:24)
[2017-06-04 06:21] LABS: Basophils % 0.2 %; Eosinophils # 0.2 K/mcL (0.0-0.6); Eosinophils % 1.4 %; Hematocrit 37.4 % (35.3-44.9); Hemoglobin 12.6 g/dL (11.5-15.4); Immature Granulocytes % 0.5 % (0-4); Immature Platelets 2.8 % (1.1-6.1); Lymphocytes # 1.6 K/mcL (0.6-4.6); Lymphocytes % 10.7 %; Mean Corpuscular HGB Conc 33.7 g/dL (31.6-35.5); Mean Corpuscular Hemoglobin 28.7 pg (28.0-33.3); Mean Corpuscular Volume 85.2 fL (83.0-100.0); Mean Platelet Volume 9.6 fL (9.4-12.4); Monocytes # 0.7 K/mcL (0.0-1.3); Monocytes % 4.8 %; Neutrophils # 12.4 K/mcL (1.6-8.9); Platelet Count 190 K/mcL (140-400); Red Blood Count 4.39 M/mcL (3.82-4.97); Red Cell Distribution Width 11.6 % (11.5-14.5); Segmented Neutrophils % 82.4 %
[2017-06-04 06:37] LABS: BUN/Creatinine Ratio 9 (6-26); Blood Urea Nitrogen 6 mg/dL (7-20); Calcium 7.8 mg/dL (8.6-10.8); Carbon Dioxide 24 mEq/L (19-29); Chloride 111 mEq/L (98-109); Glucose 135 mg/dL (70-99); Lipase 47 Units/L (8-78); Magnesium 1.7 mg/dL (1.6-2.6); Osmolality,Calculated 286 (280-300); Phosphorous 1.8 mg/dL (2.3-4.7); Potassium 3.8 mEq/L (3.5-4.5); Sodium 138 mEq/L (136-145); eGFR For African Americans > 60 (> 60); eGFR For Non-African Americans > 60 (> 60)
[2017-06-04] MEDS: *HR* Promethazine 25 MG/ML VIAL IVP PRN (07:44)
[2017-06-04] MEDS: Pantoprazole 40 MG VIAL IVP SCH (07:44)
[2017-06-04] MEDS: Aspirin Enteric Coated 81 MG Tablet PO SCH (07:45)
[2017-06-04] MEDS: Piperacillin/Tazobactam 3.375 GM in D5% in Water (Mini-Bag+) 100 ML IVPB SCH ×2 (09:36→15:35)
--- NOTE | 2017-06-04 11:55 | Internal Med Progress Note ---
Date of Encounter: 06/04/17 Time of Encounter: 11:42 - Assessment and plan (1) Pancreatitis, acute Current Visit: Yes Status: Acute Assessment and plan: continue supportive care IV fluids pain control anti-emetics clear liquid diet Qualifiers: Pancreatitis type: unspecified pancreatitis type Acute pancreatitis complication: unspecified Qualified Code(s): K85.90 - Acute pancreatitis without necrosis or infection, unspecified (2) UTI (urinary tract infection) Current Visit: Yes Status: Acute Assessment and plan: continue IV abx f/u urine cultures Qualifiers: Urinary tract infection type: site unspecified Hematuria presence: without hematuria Qualified Code(s): N39.0 - Urinary tract infection, site not specified (3) DVT prophylaxis Current Visit: Yes Status: Acute Assessment and plan: Heparin SQ (4) Diabetes Current Visit: Yes Status: Chronic Assessment and plan: continue sliding scale insulin algorithm home dose of levemir monitor FS and BG Qualifiers: Diabetes mellitus type: type 2 Diabetes mellitus complication status: without complication Diabetes mellitus half-way insulin use: with half-way use Qualified Code(s): E11.9 - Type 2 diabetes mellitus without complications ; 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 transplanted heart: [place] heart Associated angina: without angina Qualified Code(s): I25.10 - Atherosclerotic heart disease of [place] coronary artery without angina pectoris (6) HTN (hypertension) Current Visit: Yes Status: Chronic Assessment and plan: BP within acceptable range will continue to monitor Qualifiers: Hypertension type: essential hypertension Qualified Code(s): I10 - Essential (primary) hypertension (7) Electrolyte abnormality Current Visit: Yes Status: Acute Assessment and plan: Hypophosphatemia Phos supplemented continue to monitor electrolytes and replace as needed - Subjective Interval history: Pt seen and examined at bedside. As per nursing reports, patient has been demonstrating drug seeking behavior, she is asleep and wakes up stating she is in pain. During my evaluation, I had an extensive conversation with the patient about narcotic abuse and dependence, she demonstrates understanding and denies such behavior. She states her pain is better controlled but she still has the pain. States she has not moved her bowels for the last few days and is requesting stool softeners. Noted to have worsening leukocytosis but no fever or chills reported. - Constitutional Vitals: Temp Pulse Resp BP Pulse Ox 97.9 F 73 17 113/79 94 06/04/17 10:50 06/04/17 10:50 06/04/17 10:50 06/04/17 10:50 06/04/17 10:50 General appearance: Present: cooperative, morbidly obese, pleasant, no acute distress, answers questions appropriately - Head Head exam: Present: atraumatic, normocephalic - Eye Eye exam: Present: conjuntiva pink, sclera anicteric - Respiratory Respiratory exam: Present: CTAB. Absent: accessory muscle use, rales, rhonchi, wheezes - Cardiovascular Cardiovascular exam: Present: RRR, +S1, +S2. Absent: diastolic murmur, gallop, rubs, systolic murmur - GI/Abdominal GI/Abdominal exam: Present: distended (obese), normal bowel sounds, soft, no peritoneal signs. Absent: tenderness - Extremities Exam Extremities exam: Present: warm, radial pulses palpable and symmetrical. Absent : calf tenderness, cyanotic, pedal edema - Neurological Exam Neurological exam: Present: alert, oriented X3 - Psychiatric Psychiatric exam: Present: normal affect, normal mood Internal Medicine: Result - Labs CBC & Chem 7: 06/04/17 06:00 06/04/17 06:00 Labs: Short CBC 06/04/17 Range/Units 06:00 WBC 15.0 H D (4.3-11.1) K/mcL Hgb 12.6 (11.5-15.4) g/dL Hct 37.4 (35.3-44.9) % Plt Count 190 (140-400) K/mcL Neutrophils # 12.4 H (1.6-8.9) K/mcL BMP 06/04/17 06:00 Sodium 138 Potassium 3.8 Chloride 111 H Carbon Dioxide 24 BUN 6 L Creatinine 0.68 Glucose 135 H Calcium 7.8 L - ABG Interpretation ABG results: PT/INR, D-dimer PT 12.6 Seconds (9.4-12.1) H 06/03/17 05:38 Consult Discharge Plan - Plan Referrals: Lelo Quick CNP [Primary Care Provider] - 06/14/17 1:45 pm ( )
[2017-06-04] MEDS: Sennosides/Docusate Sodium TABLET PO SCH ×2 (15:34→20:37)
[2017-06-04] MEDS: Insulin DETEMIR 100 UNIT/ML X5UNITS SQ SCH (20:37)
[2017-06-04] MEDS: traZODone 50 MG TABLET PO SCH (20:37)
[2017-06-05] MEDS: Piperacillin/Tazobactam 3.375 GM in D5% in Water (Mini-Bag+) 100 ML IVPB SCH ×3 (00:15→17:00)
[2017-06-05] MEDS: Insulin LISPRO 300 UNITS/3 ML VIAL SQ SCH ×4 (00:16→17:11)
[2017-06-05] MEDS: *HR* OxyCODONE Immed Rel 5 MG TABLET PO PRN ×3 (00:16→17:03)
[2017-06-05] MEDS: 0.9 % Sodium Chloride 1,000 ML IVC SCH ×2 (01:35→17:04)
[2017-06-05] MEDS: *HR* Promethazine 25 MG/ML VIAL IVP PRN ×3 (05:01→19:47)
[2017-06-05] MEDS: *HR* Heparin 5,000 UNIT/ML VIAL SQ SCH ×2 (05:03→17:00)
[2017-06-05] MEDS: *HR* Morphine 2 MG/ML SYRINGE IVP PRN ×3 (05:05→19:48)
[2017-06-05 07:43] LABS: Basophils % 0.3 %; Eosinophils # 0.3 K/mcL (0.0-0.6); Eosinophils % 2.4 %; Hematocrit 38.5 % (35.3-44.9); Hemoglobin 12.9 g/dL (11.5-15.4); Immature Granulocytes % 0.8 % (0-4); Lymphocytes # 1.6 K/mcL (0.6-4.6); Lymphocytes % 13.9 %; Mean Corpuscular HGB Conc 33.5 g/dL (31.6-35.5); Mean Corpuscular Hemoglobin 29.1 pg (28.0-33.3); Mean Corpuscular Volume 86.9 fL (83.0-100.0); Mean Platelet Volume 10.2 fL (9.4-12.4); Monocytes # 0.6 K/mcL (0.0-1.3); Monocytes % 4.9 %; Neutrophils # 8.9 K/mcL (1.6-8.9); Platelet Count 170 K/mcL (140-400); Red Blood Count 4.43 M/mcL (3.82-4.97); Red Cell Distribution Width 11.9 % (11.5-14.5); Segmented Neutrophils % 77.7 %
[2017-06-05 07:50] LABS: BUN/Creatinine Ratio 6 (6-26); Carbon Dioxide 20 mEq/L (19-29); Chloride 111 mEq/L (98-109); Glucose 105 mg/dL (70-99); Magnesium 1.6 mg/dL (1.6-2.6); Osmolality,Calculated 285 (280-300); Phosphorous 1.4 mg/dL (2.3-4.7); Potassium 3.5 mEq/L (3.5-4.5); Sodium 139 mEq/L (136-145); eGFR For African Americans > 60 (> 60); eGFR For Non-African Americans > 60 (> 60)
[2017-06-05 07:51] LABS: Blood Urea Nitrogen 4 mg/dL (7-20)
[2017-06-05] MEDS: Sennosides/Docusate Sodium TABLET PO SCH ×2 (08:46→20:51)
[2017-06-05] MEDS: Aspirin Enteric Coated 81 MG Tablet PO SCH (08:46)
--- NOTE | 2017-06-05 09:42 | Internal Med Progress Note ---
Date of Encounter: 06/05/17 Time of Encounter: 09:40 - Assessment and plan (1) Pancreatitis, acute Current Visit: Yes Status: Acute Assessment and plan: continue supportive care IV fluids pain control anti-emetics clear liquid diet advance diet as tolerated Qualifiers: Pancreatitis type: unspecified pancreatitis type Acute pancreatitis complication: unspecified Qualified Code(s): K85.90 - Acute pancreatitis without necrosis or infection, unspecified (2) UTI (urinary tract infection) Current Visit: Yes Status: Acute Assessment and plan: continue IV abx will treat for a total of 7 days Qualifiers: Urinary tract infection type: site unspecified Hematuria presence: without hematuria Qualified Code(s): N39.0 - Urinary tract infection, site not specified (3) DVT prophylaxis Current Visit: Yes Status: Acute Assessment and plan: Heparin SQ (4) Diabetes Current Visit: Yes Status: Chronic Assessment and plan: continue sliding scale insulin algorithm home dose of levemir monitor FS and BG Qualifiers: Diabetes mellitus type: type 2 Diabetes mellitus complication status: without complication Diabetes mellitus half-way insulin use: with half-way use Qualified Code(s): E11.9 - Type 2 diabetes mellitus without complications ; 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 transplanted heart: [place] heart Associated angina: without angina Qualified Code(s): I25.10 - Atherosclerotic heart disease of [place] coronary artery without angina pectoris (6) HTN (hypertension) Current Visit: Yes Status: Chronic Assessment and plan: BP within acceptable range continue home medications will continue to monitor Qualifiers: Hypertension type: essential hypertension Qualified Code(s): I10 - Essential (primary) hypertension (7) Electrolyte abnormality Current Visit: Yes Status: Acute Assessment and plan: Hypophosphatemia Phos supplemented continue to monitor electrolytes and replace as needed - Subjective Interval history: Pt seen and examined at bedside. Pt continues to demonstrate drug seeking behavior. She is noted to be comfortably sleeping in room and as she is awoken she complains of pain and demands pain medication. Reports of having a bowel movement. No overnight issues reported. - Constitutional Vitals: Temp Pulse Resp BP Pulse Ox 98.4 F 75 16 134/84 94 08/20/17 07:41 06/05/17 07:41 06/05/17 07:41 06/05/17 07:41 06/05/17 07:41 General appearance: Present: cooperative, A&O X 3, morbidly obese, pleasant, no acute distress, answers questions appropriately - Head Head exam: Present: atraumatic, normocephalic - Eye Eye exam: Present: conjuntiva pink, sclera anicteric - Respiratory Respiratory exam: Present: CTAB. Absent: accessory muscle use, rales, rhonchi, wheezes - Cardiovascular Cardiovascular exam: Present: RRR, +S1, +S2. Absent: diastolic murmur, gallop, rubs, systolic murmur - GI/Abdominal GI/Abdominal exam: Present: normal bowel sounds, soft, no peritoneal signs. Absent: distended, tenderness - Extremities Exam Extremities exam: Present: warm, radial pulses palpable and symmetrical. Absent : calf tenderness - Neurological Exam Neurological exam: Present: alert, oriented X3 - Psychiatric Psychiatric exam: Present: normal affect, normal mood Internal Medicine: Result - Labs CBC & Chem 7: 06/05/17 06:39 06/05/17 06:39 Labs: Short CBC 06/05/17 Range/Units 06:39 WBC 11.5 H (4.3-11.1) K/mcL Hgb 12.9 (11.5-15.4) g/dL Hct 38.5 (35.3-44.9) % Plt Count 170 (140-400) K/mcL Neutrophils # 8.9 (1.6-8.9) K/mcL BMP 06/05/17 06:39 Sodium 139 Potassium 3.5 Chloride 111 H Carbon Dioxide 20 BUN 4 L Creatinine 0.66 Glucose 105 H Calcium 8.0 L - ABG Interpretation ABG results: PT/INR, D-dimer PT 12.6 Seconds (9.4-12.1) H 06/03/17 05:38 Consult Discharge Plan - Plan Referrals: Lelo Quick CNP [Primary Care Provider] - 06/14/17 1:45 pm ( )
[2017-06-05] MEDS: Insulin DETEMIR 100 UNIT/ML X5UNITS SQ SCH (20:51)
[2017-06-05] MEDS: traZODone 50 MG TABLET PO SCH (21:02)
[2017-06-06] MEDS: Piperacillin/Tazobactam 3.375 GM in D5% in Water (Mini-Bag+) 100 ML IVPB SCH ×2 (00:40→08:35)
[2017-06-06] MEDS: Insulin LISPRO 300 UNITS/3 ML VIAL SQ SCH ×3 (00:41→12:13)
[2017-06-06] MEDS: *HR* OxyCODONE Immed Rel 5 MG TABLET PO PRN (00:41)
[2017-06-06] MEDS: 0.9 % Sodium Chloride 1,000 ML IVC SCH ×2 (02:48)
[2017-06-06 04:57] LABS: Basophils % 0.3 %; Eosinophils # 0.3 K/mcL (0.0-0.6); Eosinophils % 3.6 %; Hematocrit 36.1 % (35.3-44.9); Hemoglobin 11.8 g/dL (11.5-15.4); Immature Granulocytes % 0.9 % (0-4); Lymphocytes # 1.8 K/mcL (0.6-4.6); Lymphocytes % 20.3 %; Mean Corpuscular HGB Conc 32.7 g/dL (31.6-35.5); Mean Corpuscular Hemoglobin 27.8 pg (28.0-33.3); Mean Corpuscular Volume 85.1 fL (83.0-100.0); Mean Platelet Volume 9.8 fL (9.4-12.4); Monocytes # 0.4 K/mcL (0.0-1.3); Monocytes % 4.5 %; Neutrophils # 6.2 K/mcL (1.6-8.9); Platelet Count 193 K/mcL (140-400); Red Blood Count 4.24 M/mcL (3.82-4.97); Red Cell Distribution Width 11.9 % (11.5-14.5); Segmented Neutrophils % 70.4 %
[2017-06-06] MEDS: *HR* Heparin 5,000 UNIT/ML VIAL SQ SCH (04:57)
[2017-06-06] MEDS: *HR* Morphine 2 MG/ML SYRINGE IVP PRN (04:58)
[2017-06-06 05:14] LABS: BUN/Creatinine Ratio 6 (6-26); Blood Urea Nitrogen 4 mg/dL (7-20); Calcium 8.1 mg/dL (8.6-10.8); Carbon Dioxide 23 mEq/L (19-29); Chloride 110 mEq/L (98-109); Glucose 121 mg/dL (70-99); Magnesium 1.6 mg/dL (1.6-2.6); Osmolality,Calculated 288 (280-300); Phosphorous 1.7 mg/dL (2.3-4.7); Potassium 3.1 mEq/L (3.5-4.5); Sodium 140 mEq/L (136-145); eGFR For African Americans > 60 (> 60); eGFR For Non-African Americans > 60 (> 60)
[2017-06-06] MEDS ORDERED: Potassium Phosphate 44 MEQ in 0.9 % Sodium Chloride 250 ML IVPB ONE (07:52)
[2017-06-06] MEDS: Aspirin Enteric Coated 81 MG Tablet PO SCH (08:34)
[2017-06-06] MEDS: Sennosides/Docusate Sodium TABLET PO SCH (08:34)
--- NOTE | 2017-06-06 10:38 | Discharge Summary ---
Date of Encounter: 06/06/17 Time of Encounter: 10:35 - Discharge Diagnosis (1) Pancreatitis, acute Priority: Primary Status: Acute Qualifiers: Pancreatitis type: unspecified pancreatitis type Acute pancreatitis complication: unspecified Qualified Code(s): K85.90 - Acute pancreatitis without necrosis or infection, unspecified (2) UTI (urinary tract infection) Priority: Primary Status: Acute Qualifiers: Urinary tract infection type: site unspecified Hematuria presence: without hematuria Qualified Code(s): N39.0 - Urinary tract infection, site not specified (3) DVT prophylaxis Priority: Secondary Status: Acute (4) Diabetes Priority: Secondary Status: Chronic Qualifiers: Diabetes mellitus type: type 2 Diabetes mellitus complication status: without complication 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 transplanted heart: [place] heart Associated angina: without angina Qualified Code(s): I25.10 - Atherosclerotic heart disease of [place] coronary artery without angina pectoris (6) HTN (hypertension) Priority: Secondary Status: Chronic Qualifiers: Hypertension type: essential hypertension Qualified Code(s): I10 - Essential (primary) hypertension (7) Electrolyte abnormality Priority: Secondary Status: Acute - Discharge Medications Prescriptions: OxyCODONE Immed Rel [Roxicodone 5 MG] 5 mg PO Q6HR PRN #10 tab PRN Reason: Severe Pain levoFLOXacin [Levaquin] 750 mg PO DAILY #3 tablet Home Medications: Ibuprofen [Motrin] 800 mg PO Q6HR 12/02/16 [History] Insulin ASPART [Novolog] 5 - 8 unit SQ 2-3XD 12/02/16 [History] Insulin Glargine [Lantus] 40 unit SQ HS 12/02/16 [History] Ondansetron [Zofran ODT] 4 mg SL Q6HR PRN #5 tab.rapdis 02/03/17 [Rx] Aspirin [Lo-Dose Aspirin EC] 81 mg PO DAILY 06/02/17 [History] Citalopram Hydrobromide [Citalopram HBr] 40 mg PO DAILY 06/02/17 [History] Liraglutide [Victoza 3-Tyson] 1.2 mg SQ DAILY 06/02/17 [History] Lisinopril 2.5 mg PO DAILY 06/02/17 [History] Metoprolol Tartrate [Lopressor] 50 mg PO DAILY 06/02/17 [History] Multivitamin/Iron/Folic Acid [Certavite-Antioxidant Tablet] 1 each PO DAILY [History] traZODone [TraZODone] 50 mg PO HS 06/02/17 [History] OxyCODONE Immed Rel [Roxicodone 5 MG] 5 mg PO Q6HR PRN #10 tab 06/06/17 [Rx] levoFLOXacin [Levaquin] 750 mg PO DAILY #3 tablet 06/06/17 [Rx] Allergies/Adverse Reactions: 3 Allergy/AdvReac Type Severity Reaction Status Date / Time acetaminophen [From Tylenol] AdvReac Nausea Verified 06/02/17 10:07 vancomycin AdvReac See Verified 06/02/17 13:57 Comments Date of admission: 06/03/17 13:45 Primary care physician: Lelo Quick Discharging clinician: Gail Arce Anticipated date of discharge: 06/06/17 - Patient Status Disposition: Home, Self-Care Condition: Good Functional capacity at discharge: independent ambulation Overall status at discharge: patient is back to baseline - Discharge Instructions Follow Up With: Lelo Quick CNP [Primary Care Provider] - 06/14/17 1:45 pm ( ) Additional Instructions: Please follow up with your primary care physician within five days after your discharge from the hospital. Please continue oral antibiotics as prescribed. Please resume all your home medications as prescribed by your primary care physician. - Diet and Activity Activity: resume usual activities as tolerated Diet: advance to your usual diet, diabetic diet, low fat, low cholesterol, low salt diet Hospital course: Ms. Fortune is a 36 year old female with extensive med history including CAD, DM , Hep C, HTN, morbid obesity admitted for acute pancreatitis and UTI. She was started on supportive care for acute pancreatitis and empiric IV abx for UTI. She responded well to therapy and diet was slowly advanced as tolerated. At this time, pt reports of feeling better and is tolerating PO intake well. She reports of having resolution of her presenting symptoms. She is hemodynamically stable and will be discharged to home with follow up with PCP. Pt demonstrates understanding of her diagnosis and agrees with the discharge care and plan. - Time Spent with Patient Total time spent providing and/or coordinating discharge services: Less than 30 minutes - Constitutional Vitals: Temp Pulse Resp BP Pulse Ox 98.4 F 72 16 123/74 94 06/06/17 07:02 06/06/17 07:02 06/06/17 07:02 06/06/17 07:02 06/06/17 07:02 General appearance: Present: cooperative, A&O X 3, morbidly obese, pleasant, no acute distress, answers questions appropriately - Head Head exam: Present: atraumatic, normocephalic - Eye Eye exam: Present: normal appearance, conjuntiva pink, sclera anicteric - Respiratory Respiratory exam: Present: CTAB. Absent: accessory muscle use, rales, rhonchi, wheezes - Cardiovascular Cardiovascular exam: Present: RRR, +S1, +S2. Absent: diastolic murmur, gallop, rubs, systolic murmur - GI/Abdominal GI/Abdominal exam: Present: distended (obese), normal bowel sounds, soft, no peritoneal signs. Absent: tenderness - Extremities Exam Extremities exam: Present: warm, radial pulses palpable and symmetrical. Absent : calf tenderness, cyanotic, pedal edema - Neurological Exam Neurological exam: Present: alert, oriented X3 - Psychiatric Psychiatric exam: Present: normal affect, normal mood
[2017-06-06 11:20] VITALS: BP 134/85
== END 2017-06-06 14:00 | disposition home or self-care (01) | DRG 282 ==
LOC: EMEROO 10:03 → 3ANU 10:03
PROVIDERS: ADMIT Internal Medicine; ATTEND Internal Medicine

== ENCOUNTER 2017-06-15 09:17 | Inpatient (IN) ==
[2017-06-15] MEDS ORDERED: 0.9 % Sodium Chloride 1,000 ML IVC ONE ×3 (09:30→11:07)
--- NOTE | 2017-06-15 09:42 | Emergency Department Note ---
Disposition Clinical Impression: Hyperglycemia, Generalized weakness, Paresthesias, Hypokalemia DKA (diabetic ketoacidoses) Qualifiers: Diabetes mellitus type: other specified (including BESSY) Diabetes mellitus complication detail: without coma Qualified Code(s): E13.10 - Other specified diabetes mellitus with ketoacidosis without coma Disposition: Admitted As Inpatient Condition: Fair Referrals: NONE,PCP [Non-Partnered Physician] - Forms: ED Satisfaction Letter Neuro HPI - General Chief Complaint: ED Neuro Symptoms/Deficit Stated Complaint: Numbness in arm an legs Time Seen by Provider: 06/15/17 09:20 Source: patient Mode of arrival: wheelchair Limitations: no limitations Nursing Notes Reviewed: Yes Vital Signs Reviewed: Yes - History of Present Illness HPI Narrative: 36-year-old female with a history of diabetes, CAD with a stent, IV drug use approximately 7 months ago presents for evaluation of generalized weakness and paresthesias. Patient states that her generalized weakness began 3 or 4 days ago. Notes one fall yesterday when getting out of the car. Patient also notes weakness in the upper extremity is where she is dropping objects. Patient denies any chest pain, shortness of breath, fevers. Patient states she was recently hospitalized for pancreatitis. Patient does have her gallbladder removed. Patient denies history of alcohol use. Patient states that she is unclear of the etiology of the pancreatitis. Patient denies a history of a stroke. Has any slurred speech or facial droop. Patient states that she was last well approximately 2 weeks ago. States that she checked her blood sugar this morning and it was in the 150s. Patient is not on any type of anticoagulation and takes aspirin for CAD. - Related Data Home Medications: Home Medications Medication Instructions Recorded Confirmed Ibuprofen [Motrin] 800 mg PO Q6HR PRN 12/02/16 06/15/17 Insulin ASPART [Novolog] 1 - 8 unit SQ TID PRN 12/02/16 06/15/17 Insulin Glargine [Lantus] 40 unit SQ HS 12/02/16 06/15/17 Aspirin [Lo-Dose Aspirin EC] 81 mg PO DAILY 06/02/17 06/15/17 Citalopram Hydrobromide 40 mg PO DAILY 06/02/17 06/15/17 [Citalopram HBr] Lisinopril 2.5 mg PO DAILY 06/02/17 06/15/17 Metoprolol Tartrate [Lopressor] 50 mg PO DAILY 06/02/17 06/15/17 Multivitamin/Iron/Folic Acid 1 each PO DAILY 06/02/17 06/15/17 [Certavite-Antioxidant Tablet] traZODone [TraZODone] 50 mg PO HS 06/02/17 06/15/17 Allergies/Adverse Reactions: Allergies Allergy/AdvReac Type Severity Reaction Status Date / Time acetaminophen [From Tylenol] AdvReac Nausea Verified 06/02/17 10:07 vancomycin AdvReac See Verified 06/02/17 13:57 Comments All systems ED: reviewed and negative except as stated. Constitutional: Reports: as per HPI. Denies: fever Eyes: Reports: as per HPI ENT ED: Reports: as per HPI Cardiovascular: Reports: as per HPI. Denies: chest pain, palpitations Respiratory: Reports: as per HPI. Denies: cough Gastrointestinal: Reports: as per HPI. Denies: abdominal pain, nausea, vomiting Genitourinary: Reports: as per HPI Musculoskeletal: Reports: as per HPI Integumentary: Reports: as per HPI Neurological: Reports: as per HPI, numbness, paresthesias Psychiatric: Reports: as per HPI Endocrine: Reports: as per HPI Hematological/Lymphatic: Reports: as per HPI Allergic/Immunologic: Reports: as per HPI Past Medical History - Past Medical History Medical history: Reports: coronary artery disease, diabetes, hepatitis, hyperlipidemia, hypertension, other Surgical history: Reports: cholecystectomy Psychiatric history: Reports: PTSD [employer] 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 - Social History Smoking Status: Current every day smoker Smokeless Tobacco Status: No Alcohol use: Reports: none Drug use: Reports: none Physical Exam - General Limitations: no limitations General appearance: alert, other (Sedated) - Head Head exam: atraumatic, normocephalic, normal inspection - Eye Eye exam: Present: normal appearance, PERRL, EOMI - ENT ENT exam: normal exam, mucous membranes moist - Neck Neck exam: Present: normal inspection - Chest Chest inspection: Present: normal inspection, symmetric chest wall rise - Respiratory Respiratory exam: Present: normal lung sounds bilaterally. Absent: respiratory distress - Cardiovascular Cardiovascular exam: Present: regular rate, normal rhythm - Abdominal Exam Abdominal exam: Present: soft, Non-Tender. Absent: distention, guarding, rebound - Extremities Exam Extremities exam: Present: normal inspection. Absent: pedal edema - Expanded Upper Extremity Exam Shoulder exam: Present: normal inspection Arm exam: Present: normal inspection Elbow exam: Present: normal inspection Forearm/Wrist exam: Present: normal inspection, other (Old scar on her right arm ) Hand exam: Present: normal inspection - Expanded Lower Extremity Exam Hip/Pelvis exam: Present: normal inspection Upper leg exam: Present: normal inspection Knee exam: Present: normal inspection Lower leg exam: Present: normal inspection - Back Exam Back exam: Present: normal inspection. Absent: tenderness - Neurological Exam Neurological exam: Present: alert, oriented X3, CN II-XII intact - Expanded Neurological Exam Patient oriented to: Present: person, place, time Speech: Present: fluid speech Cranial nerves: EOM function (II, III, IV, ): Normal, facial sensation (V): Normal, facial palsy (VII): Normal, spinal accessory function (XI): Normal, tongue deviation (XII): Normal Cerebellar function: finger to nose: Normal (slow to respond) Motor strength - LUE: 4/5 Motor strength - RUE: 4/5 Motor strength - LLE: 3/5 Motor strength - RLE: 3/5 Sensory exam upper extremity: light touch: Abnormal Left, Abnormal Right Sensory exam lower extremity: light touch: Abnormal Left, Abnormal Right DTR: bicep (L): 1+, bicep (R): 1+, patellar (L): 2+, patellar (R): 2+ Coma Scale Eye Opening: Spontaneous Coma Scale Motor Response: Obeys Commands Coma Scale Verbal Response: Oriented Coma Scale Total: 15 - Skin Skin exam: Present: warm, dry, intact, normal color Course Course Narrative: Patient seen and examined. Patient is not a stroke alert given the timeframe. Patient will get a stroke workup including a metabolic evaluation. Patient's bedside glucose was read as high. Concern that this may be a manifestation of a metabolic component. Patient will be screened for DKA. Patient will be treated with IV fluid hydration. Patient also received a EKG and cardiac evaluation. Patient's generalized weakness with a nonfocal component. Disposition likely admission. - Reevaluation(s) Reevaluation #1: Patient seen and examined. No change from prior evaluation. Awaiting laboratory work. Time: 10:18 Reevaluation #2: Seen and examined. Patient was updated on plan of care. Patient is known to be hyperkalemic that is nonhemolyzed. Patient was given calcium, insulin, nebs. Time: 10:52 Vital Signs Temperature 97.9 F 06/15/17 09:21 Pulse Rate 65 06/15/17 09:21 Respiratory Rate 18 06/15/17 09:21 Blood Pressure 123/84 06/15/17 09:21 O2 Sat by Pulse Oximetry 97 06/15/17 09:21 Temperature 97.9 F 06/15/17 09:21 Pulse Rate 65 06/15/17 09:21 Respiratory Rate 16 06/15/17 11:00 Blood Pressure 123/84 06/15/17 09:21 O2 Sat by Pulse Oximetry 97 06/15/17 11:00 Oxygen Delivery Oxygen Delivery Room Air Neuro Symptoms/Deficit - MDM Narrative Medical decision making narrative: 36-year-old female presents for evaluation of generalized weakness and paresthesias. Patient is a known diabetic. Patient's glucose is noted to be high. Patient had a DKA workup which included a pH of 7.31, notable acidosis in the serum. Patient did have a non-gap. Patient is also to be hyponatremic likely secondary to her hyperglycemia. Patient was treated with IV fluids, insulin, nebs and calcium given the elevated potassium. Patient's symptoms likely related to her metabolic profile. Patient's chest x-ray shows possible bronchitis no pneumonia. Patient's urine shows no signs of infection. Etiology of the patient's DKA possibly related to her medication noncompliance. Patient did get a CT of the head to rule out any intracranial pathology. Patient will be admitted to the intensive care unit for monitoring. - Lab Data Lab results reviewed: Yes I reviewed the patient's lab results. Result diagrams: 06/15/17 09:52 06/15/17 10:56 Lab Results 06/15/17 06/15/17 06/15/17 Range/Units 09:31 09:32 09:52 WBC 10.3 (4.3-11.1) K/mcL RBC 5.36 H (3.82-4.97) M/mcL Hgb 15.1 (11.5-15.4) g/dL Hct 46.2 H (35.3-44.9) % MCV 86.2 (83.0-100.0) fL MCH 28.2 (28.0-33.3) pg MCHC 32.7 (31.6-35.5) g/dL RDW 12.2 (11.5-14.5) % Plt Count 266 (140-400) K/mcL MPV 10.4 (9.4-12.4) fL Immature Gran % 1.1 (0-4) % Seg Neutrophils % 69.4 % Lymphocytes % 20.5 % Monocytes % 4.5 % Eosinophils % 3.6 % Basophils % 0.9 % Neutrophils # 7.1 (1.6-8.9) K/mcL Lymphocytes # 2.1 (0.6-4.6) K/mcL Monocytes # 0.5 (0.0-1.3) K/mcL Eosinophils # 0.4 (0.0-0.6) K/mcL Basophils # 0.1 (0.0-0.2) K/mcL Immature Plt Fraction 3.7 (1.1-6.1) % PT (9.4-12.1) Seconds INR VBG pH (7.32-7.42) pH Units VBG pCO2 (41-51) mmHg VBG pO2 (25-40) mmHg VBG HCO3 (21-27) mEq/L Sodium (136-145) mEq/L Potassium (3.5-4.5) mEq/L Chloride (98-109) mEq/L Carbon Dioxide (19-29) mEq/L BUN (7-20) mg/dL Creatinine (0.57-1.11) mg/dL Est GFR ( Amer) (> 60) Est GFR (Non-Af Amer) (> 60) BUN/Creatinine Ratio (6-26) Glucose (70-99) mg/dL POC Glucose > 600 H* > 600 H* (58-89) Calculated Osmolality (280-300) Calcium (8.6-10.8) mg/dL Troponin I (0-0.03) ng/mL Lipase (8-78) Units/L Beta-Hydroxybutyric Acd (0.02-0.27) mmol/L Urine Color (Yellow) Urine Clarity (Clear) Urine pH (5.0-8.0) pH Units Ur Specific [place] (1.010-1.025) Urine Protein (Neg-Trace) mg/dL Urine Glucose (UA) (Normal) mg/dL Urine Ketones (Negative) mg/dL Urine Blood (Negative) Urine Nitrite (Negative) Urine Bilirubin (Negative) Urine Urobilinogen (Normal) mg/dL Ur Leukocyte Esterase (Negative) Urine Test (Negative) Urine Opiates Screen (Qxsrzu=603) ng/mL Ur Barbiturates Screen (Zklmcu=513) ng/mL Ur Phencyclidine Scrn (Cutoff=25) ng/mL Ur Amphetamines Screen (Drcqrs=5761) ng/mL U Benzodiazepines Scrn (Yfufbo=596) ng/mL Urine Cocaine Screen (Cutoff= 300) ng/mL U Marijuana (THC) Screen (Cutoff = 50) ng/mL 06/15/17 06/15/17 06/15/17 Range/Units 09:52 09:52 09:52 WBC (4.3-11.1) K/mcL RBC (3.82-4.97) M/mcL Hgb (11.5-15.4) g/dL Hct (35.3-44.9) % MCV (83.0-100.0) fL MCH (28.0-33.3) pg MCHC (31.6-35.5) g/dL RDW (11.5-14.5) % Plt Count (140-400) K/mcL MPV (9.4-12.4) fL Immature Gran % (0-4) % Seg Neutrophils % % Lymphocytes % % Monocytes % % Eosinophils % % Basophils % % Neutrophils # (1.6-8.9) K/mcL Lymphocytes # (0.6-4.6) K/mcL Monocytes # (0.0-1.3) K/mcL Eosinophils # (0.0-0.6) K/mcL Basophils # (0.0-0.2) K/mcL Immature Plt Fraction (1.1-6.1) % PT 11.0 (9.4-12.1) Seconds INR 1.0 VBG pH (7.32-7.42) pH Units VBG pCO2 (41-51) mmHg VBG pO2 (25-40) mmHg VBG HCO3 (21-27) mEq/L Sodium 123 L (136-145) mEq/L Potassium 7.8 H* (3.5-4.5) mEq/L Chloride 92 L (98-109) mEq/L Carbon Dioxide 23 (19-29) mEq/L BUN 20 (7-20) mg/dL Creatinine 1.61 H (0.57-1.11) mg/dL Est GFR ( Amer) 43 L (> 60) Est GFR (Non-Af Amer) 36 L (> 60) BUN/Creatinine Ratio 12 (6-26) Glucose 805 H* (70-99) mg/dL POC Glucose (58-89) Calculated Osmolality 298 (280-300) Calcium 9.9 (8.6-10.8) mg/dL Troponin I 0.01 (0-0.03) ng/mL Lipase (8-78) Units/L Beta-Hydroxybutyric Acd (0.02-0.27) mmol/L Urine Color (Yellow) Urine Clarity (Clear) Urine pH (5.0-8.0) pH Units Ur Specific [place] (1.010-1.025) Urine Protein (Neg-Trace) mg/dL Urine Glucose (UA) (Normal) mg/dL Urine Ketones (Negative) mg/dL Urine Blood (Negative) Urine Nitrite (Negative) Urine Bilirubin (Negative) Urine Urobilinogen (Normal) mg/dL Ur Leukocyte Esterase (Negative) Urine Test (Negative) Urine Opiates Screen (Tbsghm=548) ng/mL Ur Barbiturates Screen (Gbbqvt=088) ng/mL Ur Phencyclidine Scrn (Cutoff=25) ng/mL Ur Amphetamines Screen (Obfhsp=5820) ng/mL U Benzodiazepines Scrn (Tzybpc=773) ng/mL Urine Cocaine Screen (Cutoff= 300) ng/mL U Marijuana (THC) Screen (Cutoff = 50) ng/mL 06/15/17 06/15/17 06/15/17 Range/Units 09:52 09:52 10:46 WBC (4.3-11.1) K/mcL RBC (3.82-4.97) M/mcL Hgb (11.5-15.4) g/dL Hct (35.3-44.9) % MCV (83.0-100.0) fL MCH (28.0-33.3) pg MCHC (31.6-35.5) g/dL RDW (11.5-14.5) % Plt Count (140-400) K/mcL MPV (9.4-12.4) fL Immature Gran % (0-4) % Seg Neutrophils % % Lymphocytes % % Monocytes % % Eosinophils % % Basophils % % Neutrophils # (1.6-8.9) K/mcL Lymphocytes # (0.6-4.6) K/mcL Monocytes # (0.0-1.3) K/mcL Eosinophils # (0.0-0.6) K/mcL Basophils # (0.0-0.2) K/mcL Immature Plt Fraction (1.1-6.1) % PT (9.4-12.1) Seconds INR VBG pH 7.31 L (7.32-7.42) pH Units VBG pCO2 49 (41-51) mmHg VBG pO2 37 (25-40) mmHg VBG HCO3 24.7 (21-27) mEq/L Sodium (136-145) mEq/L Potassium (3.5-4.5) mEq/L Chloride (98-109) mEq/L Carbon Dioxide (19-29) mEq/L BUN (7-20) mg/dL Creatinine (0.57-1.11) mg/dL Est GFR ( Amer) (> 60) Est GFR (Non-Af Amer) (> 60) BUN/Creatinine Ratio (6-26) Glucose (70-99) mg/dL POC Glucose (58-89) Calculated Osmolality (280-300) Calcium (8.6-10.8) mg/dL Troponin I (0-0.03) ng/mL Lipase (8-78) Units/L Beta-Hydroxybutyric Acd 0.37 H (0.02-0.27) mmol/L Urine Color Yellow (Yellow) Urine Clarity Clear (Clear) Urine pH 6.5 (5.0-8.0) pH Units Ur Specific [place] 1.030 H (1.010-1.025) Urine Protein Negative (Neg-Trace) mg/dL Urine Glucose (UA) >=1000 H (Normal) mg/dL Urine Ketones Negative (Negative) mg/dL Urine Blood Negative (Negative) Urine Nitrite Negative (Negative) Urine Bilirubin Negative (Negative) Urine Urobilinogen Normal (Normal) mg/dL Ur Leukocyte Esterase Negative (Negative) Urine Test (Negative) Urine Opiates Screen (Ecbrnj=528) ng/mL Ur Barbiturates Screen (Ocrpgq=090) ng/mL Ur Phencyclidine Scrn (Cutoff=25) ng/mL Ur Amphetamines Screen (Rybxug=3633) ng/mL U Benzodiazepines Scrn (Hubndq=202) ng/mL Urine Cocaine Screen (Cutoff= 300) ng/mL U Marijuana (THC) Screen (Cutoff = 50) ng/mL 06/15/17 06/15/17 06/15/17 Range/Units 10:46 10:46 10:56 WBC (4.3-11.1) K/mcL RBC (3.82-4.97) M/mcL Hgb (11.5-15.4) g/dL Hct (35.3-44.9) % MCV (83.0-100.0) fL MCH (28.0-33.3) pg MCHC (31.6-35.5) g/dL RDW (11.5-14.5) % Plt Count (140-400) K/mcL MPV (9.4-12.4) fL Immature Gran % (0-4) % Seg Neutrophils % % Lymphocytes % % Monocytes % % Eosinophils % % Basophils % % Neutrophils # (1.6-8.9) K/mcL Lymphocytes # (0.6-4.6) K/mcL Monocytes # (0.0-1.3) K/mcL Eosinophils # (0.0-0.6) K/mcL Basophils # (0.0-0.2) K/mcL Immature Plt Fraction (1.1-6.1) % PT (9.4-12.1) Seconds INR VBG pH (7.32-7.42) pH Units VBG pCO2 (41-51) mmHg VBG pO2 (25-40) mmHg VBG HCO3 (21-27) mEq/L Sodium (136-145) mEq/L Potassium 6.8 H* D (3.5-4.5) mEq/L Chloride (98-109) mEq/L Carbon Dioxide (19-29) mEq/L BUN (7-20) mg/dL Creatinine (0.57-1.11) mg/dL Est GFR ( Amer) (> 60) Est GFR (Non-Af Amer) (> 60) BUN/Creatinine Ratio (6-26) Glucose 727 H* (70-99) mg/dL POC Glucose (58-89) Calculated Osmolality (280-300) Calcium (8.6-10.8) mg/dL Troponin I (0-0.03) ng/mL Lipase 85 H (8-78) Units/L Beta-Hydroxybutyric Acd (0.02-0.27) mmol/L Urine Color (Yellow) Urine Clarity (Clear) Urine pH (5.0-8.0) pH Units Ur Specific [place] (1.010-1.025) Urine Protein (Neg-Trace) mg/dL Urine Glucose (UA) (Normal) mg/dL Urine Ketones (Negative) mg/dL Urine Blood (Negative) Urine Nitrite (Negative) Urine Bilirubin (Negative) Urine Urobilinogen (Normal) mg/dL Ur Leukocyte Esterase (Negative) Urine Test Negative (Negative) Urine Opiates Screen Negative (Xjtmeh=211) ng/mL Ur Barbiturates Screen Negative (Tgeuxf=963) ng/mL Ur Phencyclidine Scrn Negative (Cutoff=25) ng/mL Ur Amphetamines Screen Negative (Vdcgme=7289) ng/mL U Benzodiazepines Scrn Negative (Szbrrp=854) ng/mL Urine Cocaine Screen Negative (Cutoff= 300) ng/mL U Marijuana (THC) Screen Negative (Cutoff = 50) ng/mL - Radiology Data Radiology results reviewed: Yes I reviewed the patient's radiology results. Chest X-Ray 06/15/17 09:31 IMPRESSION: Poor inspiration. Mild peribronchial wall thickening suggest possible bronchitis. No definite pneumonia. D/ / Hemanth Yoder MD / Hemanth Yoder MD Interpreting Provider: Hemanth Yoder MD - EKG Data EKG attestation: Yes I reviewed and interpreted this EKG. EKG shows normal: sinus rhythm Rate: normal [place]/QRS: right axis deviation Heart block present: 1st Degree T wave inversions noted in: III, aVR, v1 NIH Stroke Scale - Level of Consciousness LOC: Alert - LOC Questions LOC Questions: Answers both correctly - LOC Commands LOC Commands: Performs both correctly - Best Gaze Best Gaze: Normal - Visual Visual: No visual loss - Facial Palsy Facial Palsy: Normal - Motor Arms Motor Arm-Left: Drift, does NOT hit bed Motor Arm-Right: Drift, does NOT hit bed - Motor Legs Motor Leg-Left: Some effort against gravity, limb drifts to bed Motor Leg-Right: Some effort against gravity, limb drifts to bed - Limb Ataxia Limb Ataxia: Present in TWO limbs - Sensory Sensory: Mild to moderate loss, "not as sharp" - Best Language Best Language: No aphasia - Dysarthria Dysarthria: Normal - Extinction and Inattention Extinction and Inattention: Normal - NIHSS Total Score NIHSS Total Score: 9 Critical Care Time Critical Care Time: Yes Total Critical Care Time: 60 Attestation: Critical care performed: Time is exclusive of separately billable procedures. Time includes: direct patient care, patient reassessment, coordination of patient care, interpretation of data (laboratory data, radiology data, and respiratory data), review of patient's medical records, medical consultation and documentation of patient care. Procedures included in critical care time: Procedures excluded from critical care time: S.B.AEvelio - Kishan Situation: Demographics Background: Presenting Complaint Assessment: Vital Signs, Course and respsone to treatment, Patient/Family Expectation Recommendation: Barrier(s) to disposition, Recommendation based on pending studies, treatments, or consults SVickie Report Given to: Dr. Larry Holley Repor Time: 11:48 Attestation Statement - Attestation Attestation: I, Torin Arriaga DO, examined this patient [id number] and my medical decision-making was reviewed with Dr. Schilling PGY-3, Resident Physician. I agree with the documented findings, disposition and treatment plan as described except to the extent set forth below. Please see my progress notes for details. 36-year-old female presents emergency room with complaints of generalized weakness bilateral lower extremity weakness and generalized malaise. Found to have a glucose excessively high greater than 800. She does meet most of the criteria for diabetic ketoacidosis but mainly show signs of dehydration. Infectious etiology is not noted at this point. Patient started on insulin drip fluids and nausea medication here. She did have a midline placed for IV access secondary to history of IV drug abuse. Patient denies any fevers or chills chest pain shortness of breath headache or vision change. Main complaint generalized malaise. Because of the dehydration and elevated potassium as well as concern for progression of the diabetic ketoacidosis and insulin drip patient was admitted to the ICU for definitive management. ICU resident came down to evaluate the patient the bedside. Vital signs been stable throughout the course of care she is mentating appropriately. Appropriate intervention was completed for the elevated potassium including calcium insulin and Kayexalate. Otherwise patient has been stable hemodynamically detailed review of this presentation symptoms medical intervention were discussed with the ICU attending. Also discussed the IV drug abuse and may require consideration for possible epidural abscess and there is no other focal infectious etiology. Patient does not have an elevated white blood cell count at this time. Patient otherwise is stable resting comfortably in the bed will be admitted for definitive management of potential neurologic symptoms or metabolic derangements causing her weakness and generalized malaise. Patient is comfortable with this plan. See detailed documentation by the resident physician.
[2017-06-15 10:02] LABS: Basophils # 0.1 K/mcL (0.0-0.2); Basophils % 0.9 %; Eosinophils # 0.4 K/mcL (0.0-0.6); Eosinophils % 3.6 %; Hematocrit 46.2 % (35.3-44.9); Hemoglobin 15.1 g/dL (11.5-15.4); Immature Granulocytes % 1.1 % (0-4); Immature Platelets 3.7 % (1.1-6.1); Lymphocytes # 2.1 K/mcL (0.6-4.6); Lymphocytes % 20.5 %; Mean Corpuscular HGB Conc 32.7 g/dL (31.6-35.5); Mean Corpuscular Hemoglobin 28.2 pg (28.0-33.3); Mean Corpuscular Volume 86.2 fL (83.0-100.0); Mean Platelet Volume 10.4 fL (9.4-12.4); Monocytes # 0.5 K/mcL (0.0-1.3); Monocytes % 4.5 %; Neutrophils # 7.1 K/mcL (1.6-8.9); Platelet Count 266 K/mcL (140-400); Red Blood Count 5.36 M/mcL (3.82-4.97); Red Cell Distribution Width 12.2 % (11.5-14.5); Segmented Neutrophils % 69.4 %
[2017-06-15 10:08] LABS: VBG HCO3 24.7 mEq/L (21-27); VBG PH 7.31 pH Units (7.32-7.42)
[2017-06-15 10:16] LABS: Calcium 9.9 mg/dL (8.6-10.8)
[2017-06-15 10:29] LABS: Potassium 7.8 mEq/L (3.5-4.5)
[2017-06-15] MEDS ORDERED: Insulin Human Regular 10 UNIT in 0.9 % Sodium Chloride 10 ML IV ONE (10:30)
[2017-06-15] MEDS ORDERED: Calcium Gluconate 1,000 MG in D5% in Water 100 ML IVPB ONE (10:30)
--- NOTE | 2017-06-15 10:36 | Electrocardiograph Report ---
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
[2017-06-15] MEDS ORDERED: *HR* Dextrose 50 % in Water (Syg) 50 ML SYRINGE IVP PRN ×3 (10:40→14:16)
[2017-06-15] MEDS ORDERED: Insulin Human Regular 100 UNIT in 0.9 % Sodium Chloride 100 ML IVC SCH (10:45)
[2017-06-15] MEDS ORDERED: Albuterol 2.5 MG/3 ML NEBULIZER IH ONE (10:48)
[2017-06-15] MEDS ORDERED: Albuterol 2.5 MG/3 ML NEBULIZER ONE (11:00)
[2017-06-15 11:01] LABS: Bilirubin,Urine Negative (Negative); Blood,Urine Negative (Negative); Clarity,Urine Clear (Clear); Color,Urine Yellow (Yellow); Glucose,Urine (UA) >=1000 mg/dL (Normal); Ketones,Urine Negative (Negative); Leukocyte Esterase,Urine Negative (Negative); Nitrite,Urine Negative (Negative); PH,Urine 6.5 pH Units (5.0-8.0); Protein,Urine Negative (Neg-Trace); Urobilinogen,Urine Normal (Normal)
[2017-06-15 11:03] LABS: Amphetamine Screen,Urine Negative ng/mL (Cutoff=1000); Barbiturate Screen,Urine Negative ng/mL (Cutoff=200); Benzodiazepines Screen,Urine Negative ng/mL (Cutoff=200); Cannabinoid Screen,Urine Negative ng/mL (Cutoff = 50); Cocaine Screen,Urine Negative ng/mL (Cutoff= 300); Opiate Screen,Urine Negative ng/mL (Cutoff=300); Phencyclidine Screen,Urine Negative ng/mL (Cutoff=25)
[2017-06-15 11:27] LABS: Potassium 6.8 mEq/L (3.5-4.5)
[2017-06-15] MEDS: Insulin Regular, Human 100 UNIT/ML IV PRN ×2 (13:22→18:59)
[2017-06-15] MEDS ORDERED: Naloxone 0.4 MG/ML INJ IVP PRN (13:22)
--- NOTE | 2017-06-15 13:42 | Pulmonology History & Physical ---
<EdouardjoshualsiandroMarycarmen abernathy - Last Filed: 06/15/17 14:39> Date of Encounter: 06/15/17 Time of Encounter: 01:30 Assessment and Plan (1) DKA (diabetic ketoacidoses) Current visit: Yes Status: Acute Patient currently on insulin drip and fluid boluses per DKA protocol. Last POC glucose was 237. Will redraw BMP at 6:00PM to determine if the gap is closed. Qualifiers: Diabetes mellitus type: other specified (including BESSY) Diabetes mellitus complication detail: without coma Qualified Code(s): E13.10 - Other specified diabetes mellitus with ketoacidosis without coma (2) Generalized weakness Current visit: Yes Status: Acute CT head in ED was WNL. Most likely d/t hyperglycemia. Will continue to reassess as the blood glucose is lowered. No focal deficits on exam. Neuro WNL. History of Present Illness Chief complaint: DKA HPI: Ms. Fortune is a 36 year old female with a history of type 2 insulin dependent diabetes, CAD with a stent, IV drug use approximately 7 months ago presented to the ED for evaluation of generalized weakness and paresthesias. States she has had bilateral upper and lower extremity weakness for 1 week. Patient denies any chest pain, shortness of breath, fevers. Patient states she was recently hospitalized for pancreatitis. Patient denies history of alcohol use. She states she checked her blood sugar three times yesterday and all readings were less than 150. She states she went to her physician today and was unable to get out of the chair to be seen so they sent her to the ED. While in the ED, her measured glucose was 800. She was started on an insulin drip with fluid boluses. Head CT completed in the ED was WNL. Patient also states she has burning during urination. UA completed in ED was WNL. Past Med Surg Social Fam HX - Past Medical History Medical history: coronary artery disease, diabetes, hepatitis, hyperlipidemia, hypertension, other Psychiatric history: PTSD - Past Surgical History Surgical History: cholecystectomy - Social History Smoking Status: Current every day smoker Smokeless Tobacco Status: No Alcohol use: none Drug use: none - Family History Father Living Status: Still Living Hx Family Endocrine Disorder: No Mother Living Status: Still Living Hx Family Endocrine Disorder: Yes (DM) Brother Living Status: Still Living Hx Family Endocrine Disorder: No Medications and Allergies Ibuprofen [Motrin] 800 mg PO Q6HR PRN 12/02/16 [History] Insulin ASPART [Novolog] 1 - 8 unit SQ TID PRN 12/02/16 [History] Insulin Glargine [Lantus] 40 unit SQ HS 12/02/16 [History] Aspirin [Lo-Dose Aspirin EC] 81 mg PO DAILY 06/02/17 [History] Citalopram Hydrobromide [Citalopram HBr] 40 mg PO DAILY 06/02/17 [History] Lisinopril 2.5 mg PO DAILY 06/02/17 [History] Metoprolol Tartrate [Lopressor] 50 mg PO DAILY 06/02/17 [History] Multivitamin/Iron/Folic Acid [Certavite-Antioxidant Tablet] 1 each PO DAILY [History] traZODone [TraZODone] 50 mg PO HS 06/02/17 [History] 3 Allergy/AdvReac Type Severity Reaction Status Date / Time acetaminophen [From Tylenol] AdvReac Nausea Verified 06/02/17 10:07 vancomycin AdvReac See Verified 06/02/17 13:57 Comments All Systems: A 10-system review of systems was performed and is negative for pertinent findings except as documented above in the HPI. - Constitutional Constitutional: no anorexia, no chills, no fever(s) - EENT Eyes: as per HPI Ears: as per HPI Nose, mouth and throat: as per HPI - Cardiovascular Cardiovascular: no chest pain, no claudication, no dyspnea on exertion, no irregular heart rhythm - Respiratory Respiratory: no cough, no dyspnea, no wheezing - Gastrointestinal Gastrointestinal: no diarrhea, no nausea, no vomiting - Genitourinary Genitourinary: dysuria, no difficulty urinating, no difficulty voiding, no hematuria - Musculoskeletal Musculoskeletal: weakness, no abnormal gait, no joint swelling, no stiffness - Integumentary Integumentary: no erythema, no rash, no jaundice - Neurological Neurological: radicular pain, no dizziness, no focal weakness, no frequent falls , no sensory deficit - Psychiatric Psychiatric: as per HPI - Endocrine Endocrine: as per HPI - Hematologic/Lymphatic Hematologic/Lymphatic: as per HPI - Allergic/Immunologic Allergic/Immunologic: as per HPI Physical Examination Vital Signs: Vital Signs, Last 4 Hours Resp BP 06/15/17 13:05 20 124/80 General appearance: no acute distress, alert Eyes: nonicteric ENT: oropharynx dry Neck: supple, no JVD Effort: normal Inspection: normal Auscultation: bilateral: clear Cardiovascular: regular rate and rhythm Gastrointestinal: normoactive bowel sounds, soft, non-distended Integumentary: normal Extremities: no cyanosis, no edema, no clubbing Musculoskeletal: no deformities Gait: normal posture normal mental status, non-focal exam, pupils equal and round, motor strength normal and symmetric mood appropriate, affect normal Results - Laboratory Findings CBC and BMP: 06/15/17 09:52 06/15/17 12:05 PT/INR, D-dimer PT 11.0 Seconds (9.4-12.1) 06/15/17 09:52 Abnormal lab findings: Abnormal lab results RBC 5.36 M/mcL (3.82-4.97) H 06/15/17 09:52 Hct 46.2 % (35.3-44.9) H 06/15/17 09:52 VBG pH 7.31 pH Units (7.32-7.42) L 06/15/17 09:52 Sodium 123 mEq/L (136-145) L 06/15/17 09:52 Potassium 6.8 mEq/L (3.5-4.5) H* D 06/15/17 10:56 Chloride 92 mEq/L (98-109) L 06/15/17 09:52 Creatinine 1.61 mg/dL (0.57-1.11) H 06/15/17 09:52 Est GFR ( Amer) 43 (> 60) L 06/15/17 09:52 Est GFR (Non-Af Amer) 36 (> 60) L 06/15/17 09:52 Glucose 515 mg/dL (70-99) H* 06/15/17 12:05 POC Glucose 353 (58-89) H 06/15/17 13:20 Lactic Acid 2.4 mmol/L (0.5-2.2) H 06/15/17 12:05 Lipase 85 Units/L (8-78) H 06/15/17 10:56 Beta-Hydroxybutyric Acd 0.37 mmol/L (0.02-0.27) H 06/15/17 09:52 Ur Specific [place] 1.030 (1.010-1.025) H 06/15/17 10:46 Urine Glucose (UA) >=1000 mg/dL (Normal) H 06/15/17 10:46 <Ayo Cannon - Last Filed: 06/15/17 15:35> Date of Encounter: 06/15/17 History of Present Illness HPI: Ms. Fortune is a 36 year old female All Systems: A 10-system review of systems was performed and is negative for pertinent findings except as documented above in the HPI. Physical Examination Vital Signs: Vital Signs, Last 4 Hours Temp Pulse Resp BP Pulse Ox 06/15/17 15:00 73 15 118/87 98 06/15/17 14:15 71 14 114/81 97 06/15/17 13:35 68 06/15/17 13:15 97.7 F 68 16 130/89 96 06/15/17 13:05 20 124/80 Results - Laboratory Findings CBC and BMP: 06/15/17 09:52 06/15/17 12:05 PT/INR, D-dimer PT 11.0 Seconds (9.4-12.1) 06/15/17 09:52 Abnormal lab findings: Abnormal lab results RBC 5.36 M/mcL (3.82-4.97) H 06/15/17 09:52 Hct 46.2 % (35.3-44.9) H 06/15/17 09:52 VBG pH 7.31 pH Units (7.32-7.42) L 06/15/17 09:52 Sodium 123 mEq/L (136-145) L 06/15/17 09:52 Potassium 6.8 mEq/L (3.5-4.5) H* D 06/15/17 10:56 Chloride 92 mEq/L (98-109) L 06/15/17 09:52 Creatinine 1.61 mg/dL (0.57-1.11) H 06/15/17 09:52 Est GFR ( Amer) 43 (> 60) L 06/15/17 09:52 Est GFR (Non-Af Amer) 36 (> 60) L 06/15/17 09:52 Glucose 515 mg/dL (70-99) H* 06/15/17 12:05 POC Glucose 130 (58-89) H 06/15/17 15:30 Lactic Acid 2.4 mmol/L (0.5-2.2) H 06/15/17 12:05 Lipase 85 Units/L (8-78) H 06/15/17 10:56 Beta-Hydroxybutyric Acd 0.37 mmol/L (0.02-0.27) H 06/15/17 09:52 Ur Specific [place] 1.030 (1.010-1.025) H 06/15/17 10:46 Urine Glucose (UA) >=1000 mg/dL (Normal) H 06/15/17 10:46 - Attending Attestation I examined this patient and my medical decision-making was reviewed with the Resident Physician. I agree with the documented findings, disposition and treatment plan as described except to the extent set forth below. Patient seen and examined. Labs, radiology, chart personally reviewed. 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 Patient will be treated according to DKA protocol. Lines: all lines checked and no evidence of infections Skin: skin care to prevent pressure ulcers per nursing routine care We will continue fluid resuscitation and monitor her electrolytes carefully especially her potassium. Diabetic education will be helpful.
[2017-06-15] MEDS ORDERED: Insulin Regular, Human 100 UNIT/ML IV PRN (14:16)
[2017-06-15] MEDS ORDERED: Ibuprofen 400 MG TABLET PO ONE (15:35)
[2017-06-15] MEDS: D5% in 0.45% NACL 1,000 ML IVC PRN ×2 (15:37→19:33)
[2017-06-15] MEDS: Insulin Human Regular 100 UNIT in 0.9 % Sodium Chloride 100 ML IVC SCH ×2 (15:40→20:47)
[2017-06-15] MEDS ORDERED: *HR* HYDROmorphone 2 MG/ML SYRINGE IVP PRN (18:12)
[2017-06-15 18:54] LABS: BUN/Creatinine Ratio 17 (6-26); Blood Urea Nitrogen 14 mg/dL (7-20); Calcium 8.5 mg/dL (8.6-10.8); Carbon Dioxide 25 mEq/L (19-29); Chloride 105 mEq/L (98-109); Glucose 191 mg/dL (70-99); Osmolality,Calculated 292 (280-300); eGFR For African Americans > 60 (> 60); eGFR For Non-African Americans > 60 (> 60)
[2017-06-15 18:55] LABS: Potassium 3.9 mEq/L (3.5-4.5); Sodium 138 mEq/L (136-145)
[2017-06-15] MEDS ORDERED: traZODone 50 MG TABLET PO SCH (21:15)
[2017-06-15] MEDS ORDERED: hydrOXYzine pamoate 25 MG CAPSULE PO ONE (21:19)
[2017-06-15] MEDS ORDERED: Insulin DETEMIR 100 UNIT/ML X5UNITS SQ ONE (21:23)
--- NOTE | 2017-06-15 21:37 | Event Note ---
Date of Encounter: 06/15/17 Time of Encounter: 21:36 Noted glucose now 158, no anion gap, patient tolerating PO intake. Will transition to subcut insulin, stop insulin gtt 90 min later, and check BMP at MN and 0400 to ensure that glycemic control/AG and electrolytes stable.
[2017-06-15] MEDS: Ringers Solution, Lactated 1,000 ML IVC SCH (23:38)
[2017-06-16 01:12] LABS: BUN/Creatinine Ratio 16 (6-26); Blood Urea Nitrogen 15 mg/dL (7-20); Calcium 8.7 mg/dL (8.6-10.8); Carbon Dioxide 22 mEq/L (19-29); Chloride 107 mEq/L (98-109); Glucose 264 mg/dL (70-99); Magnesium 1.3 mg/dL (1.6-2.6); Osmolality,Calculated 296 (280-300); Phosphorous 3.2 mg/dL (2.3-4.7); Potassium 4.8 mEq/L (3.5-4.5); Sodium 138 mEq/L (136-145); eGFR For African Americans > 60 (> 60); eGFR For Non-African Americans > 60 (> 60)
[2017-06-16] MEDS ORDERED: Magnesium Sulfate 2 GM in D5% in Water 100 ML IVPB ONE (01:49)
[2017-06-16] MEDS: Insulin LISPRO 300 UNITS/3 ML VIAL SQ SCH ×4 (01:53→16:47)
[2017-06-16 04:01] LABS: Basophils # 0.1 K/mcL (0.0-0.2); Basophils % 0.5 %; Eosinophils # 0.4 K/mcL (0.0-0.6); Eosinophils % 3.3 %; Hematocrit 37.7 % (35.3-44.9); Immature Granulocytes % 0.9 % (0-4); Lymphocytes # 2.7 K/mcL (0.6-4.6); Lymphocytes % 23.7 %; Mean Corpuscular HGB Conc 32.9 g/dL (31.6-35.5); Mean Corpuscular Volume 85.1 fL (83.0-100.0); Mean Platelet Volume 9.9 fL (9.4-12.4); Monocytes # 0.5 K/mcL (0.0-1.3); Neutrophils # 7.6 K/mcL (1.6-8.9); Platelet Count 197 K/mcL (140-400); Red Blood Count 4.43 M/mcL (3.82-4.97); Red Cell Distribution Width 12.4 % (11.5-14.5); Segmented Neutrophils % 67.6 %
[2017-06-16 04:02] LABS: Hemoglobin 12.4 g/dL (11.5-15.4)
[2017-06-16 04:06] LABS: Beta-Hydroxybutyric Acid 0.23 mmol/L (0.02-0.27)
[2017-06-16 04:14] LABS: Alanine Aminotransferase 42 Units/L (0-55); Albumin 2.6 g/dL (3.5-5.0); Albumin/Globulin Ratio 0.8 (1.1-2.2); Alkaline Phosphatase 89 Units/L (38-126); Aspartate Amino Transferase 36 Units/L (5-34); BUN/Creatinine Ratio 16 (6-26); Bilirubin,Total 0.4 mg/dL (0.2-1.2); Blood Urea Nitrogen 16 mg/dL (7-20); Calcium 8.4 mg/dL (8.6-10.8); Carbon Dioxide 23 mEq/L (19-29); Chloride 105 mEq/L (98-109); Globulin 3.3 g/dL (2.4-3.5); Glucose 451 mg/dL (70-99); Magnesium 1.2 mg/dL (1.6-2.6); Osmolality,Calculated 301 (280-300); Phosphorous 2.5 mg/dL (2.3-4.7); Potassium 4.8 mEq/L (3.5-4.5); Sodium 135 mEq/L (136-145); Total Protein 5.9 g/dL (6.0-8.3); eGFR For African Americans > 60 (> 60); eGFR For Non-African Americans 60 (> 60)
[2017-06-16 04:16] LABS: Albumin 2.6 g/dL (3.5-5.0); Albumin/Globulin Ratio 0.8 (1.1-2.2); Bilirubin,Direct 0.2 mg/dL (0.0-0.5); Bilirubin,Indirect 0.2 mg/dL (0.0-1.2); Bilirubin,Total 0.4 mg/dL (0.2-1.2); Globulin 3.2 g/dL (2.4-3.5); Total Protein 5.8 g/dL (6.0-8.3)
[2017-06-16] MEDS ORDERED: Insulin DETEMIR 100 UNIT/ML X5UNITS SQ ONE (05:20)
[2017-06-16] MEDS: Ringers Solution, Lactated 1,000 ML IVC SCH (05:32)
--- NOTE | 2017-06-16 07:46 | Pulmonology Progress Note ---
<Marycarmen Jim - Last Filed: 06/16/17 08:59> Date of Encounter: 06/16/17 Time of Encounter: 07:30 Assessment and Plan (1) DKA (diabetic ketoacidoses) Current Visit: Yes Status: Acute Patient taken off of insulin drip overnight. No gap noted. Will continue on levemir and high sliding scale. Qualifiers: Diabetes mellitus type: other specified (including BESSY) Diabetes mellitus complication detail: without coma Qualified Code(s): E13.10 - Other specified diabetes mellitus with ketoacidosis without coma (2) Generalized weakness Current Visit: Yes Status: Acute CT head in ED was WNL. Most likely d/t hyperglycemia. Patient states she is feeling better today just minimally weak. Neuro exam WNL. Subjective Interval history: No events overnight. Patient was taken off of the insulin drip and now is receiving levemir and high sliding scale. Patient currently complaining of dysuria. UA was completed in the ED but no culture was ordered. We will completed UA and culture. Objective PUL Vital signs: Last Vital Signs Temp 98.7 F 06/16/17 03:20 Pulse 76 06/16/17 06:00 Resp 16 06/16/17 06:00 BP 110/68 06/16/17 06:00 Pulse Ox 98 06/16/17 06:00 General appearance: no acute distress, asleep Eyes: nonicteric ENT: oropharynx moist Neck: supple, no JVD Effort: normal Auscultation: bilateral: clear Cardiovascular: regular rate and rhythm Gastrointestinal: normoactive bowel sounds, soft, non-distended Integumentary: normal Extremities: no cyanosis, no edema, no clubbing Musculoskeletal: no deformities Gait: normal posture normal mental status, non-focal exam mood appropriate, affect normal Results - Laboratory Findings CBC and BMP: 06/16/17 03:32 06/16/17 03:32 PT/INR, D-dimer PT 11.0 Seconds (9.4-12.1) 06/15/17 09:52 Abnormal lab findings: Abnormal lab results WBC 11.2 K/mcL (4.3-11.1) H 06/16/17 03:32 VBG pH 7.31 pH Units (7.32-7.42) L 06/15/17 09:52 Sodium 135 mEq/L (136-145) L 06/16/17 03:32 Potassium 4.8 mEq/L (3.5-4.5) H 06/16/17 03:32 Glucose 451 mg/dL (70-99) H 06/16/17 03:32 POC Glucose 292 (58-89) H 06/16/17 07:09 Calculated Osmolality 301 (280-300) H 06/16/17 03:32 Lactic Acid 2.4 mmol/L (0.5-2.2) H 06/15/17 12:05 Calcium 8.4 mg/dL (8.6-10.8) L 06/16/17 03:32 Magnesium 1.2 mg/dL (1.6-2.6) L 06/16/17 03:32 AST 36 Units/L (5-34) H 06/16/17 03:32 Serum Total Protein 5.9 g/dL (6.0-8.3) L 06/16/17 03:32 Albumin 2.6 g/dL (3.5-5.0) L 06/16/17 03:32 Albumin/Globulin Ratio 0.8 (1.1-2.2) L 06/16/17 03:32 Lipase 85 Units/L (8-78) H 06/15/17 10:56 Ur Specific [place] 1.030 (1.010-1.025) H 06/15/17 10:46 Urine Glucose (UA) >=1000 mg/dL (Normal) H 06/15/17 10:46 - Clinical Findings Intake & Output: Intake & Output 06/15/17 06/15/17 06/16/17 15:59 23:59 07:59 Intake Total 2124.4 / 2134.5 2457 / 2457 104 / 104 Output Total 0 / 0 Balance 2124.4 / 2134.5 2457 / 2457 104 / 104 Weight 121.397 kg 122.47 kg Consult Discharge Plan - Plan Referrals: Lelo Quick CNP [Primary Care Provider] - <Ayo Cannon - Last Filed: 06/16/17 10:36> Date of Encounter: 06/16/17 Objective PUL Vital signs: Last Vital Signs Temp 97.7 F 06/16/17 10:10 Pulse 73 06/16/17 10:10 Resp 18 06/16/17 10:10 BP 115/69 06/16/17 10:10 Pulse Ox 98 06/16/17 10:10 Results - Laboratory Findings CBC and BMP: 06/16/17 03:32 06/16/17 03:32 PT/INR, D-dimer PT 11.0 Seconds (9.4-12.1) 06/15/17 09:52 Abnormal lab findings: Abnormal lab results WBC 11.2 K/mcL (4.3-11.1) H 06/16/17 03:32 VBG pH 7.31 pH Units (7.32-7.42) L 06/15/17 09:52 Sodium 135 mEq/L (136-145) L 06/16/17 03:32 Potassium 4.8 mEq/L (3.5-4.5) H 06/16/17 03:32 Glucose 451 mg/dL (70-99) H 06/16/17 03:32 POC Glucose 292 (58-89) H 06/16/17 07:09 Hemoglobin A1c 10.7 % (-5.6) H 06/16/17 03:32 Calculated Osmolality 301 (280-300) H 06/16/17 03:32 Lactic Acid 2.4 mmol/L (0.5-2.2) H 06/15/17 12:05 Calcium 8.4 mg/dL (8.6-10.8) L 06/16/17 03:32 Magnesium 1.2 mg/dL (1.6-2.6) L 06/16/17 03:32 AST 36 Units/L (5-34) H 06/16/17 03:32 Serum Total Protein 5.9 g/dL (6.0-8.3) L 06/16/17 03:32 Albumin 2.6 g/dL (3.5-5.0) L 06/16/17 03:32 Albumin/Globulin Ratio 0.8 (1.1-2.2) L 06/16/17 03:32 Lipase 85 Units/L (8-78) H 06/15/17 10:56 Ur Specific [place] 1.030 (1.010-1.025) H 06/15/17 10:46 Urine Glucose (UA) >=1000 mg/dL (Normal) H 06/15/17 10:46 - Clinical Findings Intake & Output: Intake & Output 06/15/17 06/16/17 06/16/17 23:59 07:59 15:59 Intake Total 2456 / 2456 104 / 104 1240 / 1240 Output Total 0 / 0 900 / 900 0 / 0 Balance 2456 / 2456 -796 / -796 1240 / 1240 Weight 122.47 kg - Attending Attestation I examined this patient and my medical decision-making was reviewed with the Resident Physician. I agree with the documented findings, disposition and treatment plan as described except to the extent set forth below. Patient seen and examined. Labs, radiology, chart personally reviewed. 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 I suspect she might have obstructive sleep apnea and she will need outpatient follow-up Cardiovascular: stable GI: Nutrition per dietary and GI prophylaxis per routine Heme: DVT prophylaxis per routine Renal; urine out put and renal funtion reviewed Endorcine: blood glucose is monitored. There is no evidence of DKA and have her on high sliding scale with home insulin. Patient needs follow-up with her therapist's assistant and diabetic teaching. Lines: all lines checked and no evidence of infections Skin: skin care to prevent pressure ulcers per nursing routine care Patient is stable and was transferred to the floor.
[2017-06-16 07:58] LABS: Hemoglobin A1C 10.7 %
[2017-06-16] MEDS ORDERED: Insulin LISPRO 300 UNITS/3 ML VIAL SQ SCH (08:00)
[2017-06-16] MEDS ORDERED: Aspirin Enteric Coated 81 MG Tablet PO SCH (09:38)
[2017-06-16] MEDS ORDERED: NON-FORMULARY MEDICATION 1 EACH EACH (Citalopram Hydrobromide [Citalopram Hbr] 40 MG) PO SCH (09:38)
[2017-06-16 14:34] LABS: Bilirubin,Urine Negative (Negative); Blood,Urine Negative (Negative); Color,Urine Yellow (Yellow); Glucose,Urine (UA) Normal (Normal); Ketones,Urine Negative (Negative); Leukocyte Esterase,Urine Trace (Negative); Nitrite,Urine Negative (Negative); PH,Urine 6.5 pH Units (5.0-8.0); Protein,Urine Negative (Neg-Trace); Specific Gravity,Urine 1.014 (1.010-1.025); Urobilinogen,Urine Normal (Normal)
[2017-06-16 14:36] LABS: Bacteria,Urine Few per hpf (None-Few); Hyaline Casts,Urine None Seen per lpf (None-Few); RBC,Urine 0-3 per hpf (0-3); Squamous Epithelial Cell,Urine Many per lpf (None-Few)
[2017-06-16 14:38] LABS: Clarity,Urine Slightly Hazy (Clear)
[2017-06-16 16:18] VITALS: BP 114/72
[2017-06-16] MEDS ORDERED: Ibuprofen 400 MG TABLET PO ONE (18:40)
[2017-06-16] MEDS ORDERED: Nicotine 21 MG PATCH.TD24 TD SCH (18:45)
[2017-06-16] MEDS ORDERED: traZODone 50 MG TABLET PO SCH ×2 (21:00)
[2017-06-16] MEDS ORDERED: Insulin DETEMIR 100 UNIT/ML X5UNITS SQ SCH ×2 (21:00)
== END 2017-06-16 19:40 | disposition left against medical advice (07) | DRG 420 ==
LOC: EMEROO 09:17 → ICNU 12:44 → 3ANU 06-16 10:01
PROVIDERS: ADMIT Internal Medicine Pulmonary Disease; ATTEND Internal Medicine